=== PATIENT | female | born 1945 | race Caucasian/White ===

== ENCOUNTER → 2017-11-17 09:42 | Outpatient (CLI) | payer MEDICARE, OTHER, SELFPAY ==
--- NOTE | 2017-11-17 | DI.RAD.S_ITS ---
This blank DEXA report has been sent in error by the PACS system. The correct and complete report will be forthcoming in 1-2 days. Thank you for your patience and understanding. Dictated by: Ernestina Quispe MD, PhD on 11/17/2017 at 11:12 Approved by: Ernestina Quispe MD, PhD on 11/17/2017 at 11:12
== END ==
PROVIDERS: Family Provider Family Medicine; PCP Family Medicine; Visit Provider Family Medicine
DX: M81.0 Age-related osteoporosis without current pathological fracture (principal); Z78.0 Asymptomatic menopausal state
CPT/HCPCS: 77080

== ENCOUNTER → 2018-04-20 13:12 | Outpatient (CLI) | payer MEDICARE, OTHER, SELFPAY ==
--- NOTE | 2018-04-20 | DI.US.S_ITS ---
LIMITED ULTRASOUND OF RIGHT BREAST: 04/20/2018 CLINICAL: Targeted ultrasound ordered for evaluation of right breast pruritis. At the time of the exam, the patient reports a new focal palpable abnormality. A diagnostic mammogram order could not be obtained. Comparison is made to exams dated: 08/11/2017 mammogram, 06/24/2016 mammogram, 03/30/2015 mammogram, and 03/12/2014 mammogram - [facility]. Real-time and Doppler ultrasound of the right breast 3 o'clock and 8 o'clock regions were performed. Roa scale images of the real-time examination were reviewed. Targeted ultrasound was performed in the region of the patient's reported pruritis in the right breast at 3 o'clock position. No underlying breast mass or abnormality is identified. There is no ultrasound evidence of skin thickening or edema. Targeted ultrasound was performed in the region of the patient's reported focal palpable abnormality in the right breast at 8 o'clock position. No underlying breast mass or abnormality is identified. IMPRESSION: INCOMPLETE: NEEDS ADDITIONAL IMAGING EVALUATION 1) No ultrasound findings to explain patient's reported pruritis in the right breast at 3 o'clock position. Recommend clinical follow-up for further evaluation and management of the patient's reported symptoms. 2) No ultrasound findings to explain patient's reported focal palpable abnormality in the right breast at 8 o'clock position. Recommend clinical follow-up for further evaluation and management. A diagnostic mammogram is recommended if there is continued clinical concern. 3) There is no sonographic evidence of malignancy in the imaged portions of the right breast on today's exam. These results and recommendations were discussed with the patient at the time of the exam by the yard caller Marlen Farah after review of images and discussion with Dr. Coe. The patient is advised to monitor her breasts and to return sooner for re-evaluation should she feel anything grow or change. This exam was interpreted at Station ID: [id number]. Electronically Signed By: Scott Coe M.D. ecl/:04/20/2018 13:47:15 letter sent: Additional Imaging Needed Ultrasound BI-RADS: 0 Indeterminate
== END ==
PROVIDERS: Family Provider Family Medicine; PCP Family Medicine; Visit Provider Family Medicine
DX: L29.9 Pruritus, unspecified (principal)
CPT/HCPCS: 76642

== ENCOUNTER → 2018-05-18 09:04 | Outpatient (CLI) | payer MEDICARE, OTHER, SELFPAY ==
--- NOTE | 2018-05-18 10:28 | P.PCN_ITS ---
Cardiac Stress Test Report Referral & Results Date Patient Seen: 05/18/18 Requesting provider: Salvador Mcgowan Indication: Chest pain Rest ECG: Unremarkable Procedure Note: Today following both written and verbal informed consent the patient was exercised according to a standard Tarik protocol patient went for a total of 7 min 24 sec achieving a maximum heart rate of 133 maximum systolic blood pressure of 180. This is approximately 10.1 METS. Exercise was terminated at this point because of targets were met. Patient was also given Cardiolite through a previously started Hep-Lock IV by the fire sprinkler service technician approximately 1 minute prior to the cessation of exercise. There are no ST-T segment changes Occasional PVCs and PACs identified Normal heart rate and blood pressure response to exercise Functional aerobic impairment rated-25% on the active scale Impression: No evidence of ischemia based on ECG criteria Excellent exercise capacity Perfusion imaging report will be separate Please note: Actual ECG tracings can be found in the PACS system.
--- NOTE | 2018-05-21 18:24 | DI.NM.S_ITS ---
DATE OF SERVICE: 05/18/2018 PROCEDURE PERFORMED: Exercise treadmill stress and rest myocardial perfusion imaging study with gating to assess ejection fraction and regional wall motion. INDICATIONS: The patient is a 73-year-old female with exertional chest discomfort. REFERRING PROVIDER: Salvador Mcgowan MD EXERCISE TREADMILL TESTING: The patient was able to exercise for a total of 7 minutes 24 seconds on a standard Tarik protocol suggesting very good exercise capacity with an ANNA of -25%. She had normal hemodynamic response achieving a maximum heart rate of 133 bpm (90% of her predicted maximum). She had no chest discomfort. Her resting ECG is normal, and there are no ischemic changes with stress. There were rare isolated PVC but no complex ventricular ectopy. At 6 minutes 33 seconds of exercise, at heart rate of 133 bpm, 25.8 mCi a technetium-99 Myoview was injected, and the patient was imaged 15 minutes later using a gated SPECT acquisition protocol. The patient returned 3 days later and was reinjected with an additional 24.0 mCi of technetium-99 Myoview and was imaged 30 minutes later, again using a gated SPECT protocol. FINDINGS: 1. Raw Data: There is fairly good myocardial tracer uptake with mild breast shadows noted. The lung/heart ratio is normal at 0.29 with a normal TID ratio of 0.85. 2. Quantitative Gated SPECT: Post stress ejection fraction is estimated at 79% without any focal wall motion abnormality. Resting ejection fraction is estimated at 75% with an end-diastolic volume of 105 mL. 3. Myocardial Perfusion Imaging: Post stress supine images shows a normal myocardial perfusion pattern, supported by normal myocardial perfusion imaging in the prone position. The resting images show a similar perfusion pattern without any obvious areas of improvement. CONCLUSION: 1. Normal myocardial perfusion study. 2. No evidence for any myocardial ischemia or previous myocardial infarction. 3. Very good exercise capacity without angina or ECG evidence of ischemia. 4. Compared to the previous myocardial perfusion imaging study of 05/13/2011, there has been no significant change. The previous perfusion imaging study was also normal with a post stress ejection fraction of 74%. Robert Haas - RS/reina/ab doc#: [id number]/job#: [id number] dd: 05/21/2018 12:39:00 dt: 05/21/2018 18:11:00 DICTATING MD/COPIES TO: Kodi Fernando MD; Salvador Mcgowan MD COPIES MNE: WILVER; MELISSA
== END ==
PROVIDERS: Family Provider Family Medicine; PCP Family Medicine; Visit Provider Family Medicine
DX: R07.89 Other chest pain (principal)
CPT/HCPCS: 78452; 93016; 93017; 93018; A9502

== ENCOUNTER → 2018-08-20 09:11 | Outpatient (CLI) | payer MEDICARE, OTHER, SELFPAY ==
--- NOTE | 2018-08-20 | DI.MG.S_ITS ---
BILATERAL DIGITAL DIAGNOSTIC MAMMOGRAM 3D/2D: 08/20/2018 CLINICAL: Short term follow up of the right breast, due for bilateral imaging. Comparison is made to exams dated: 04/20/2018 ultrasound, 08/11/2017 mammogram, and 06/24/2016 mammogram - [facility]. The tissue of both breasts is heterogeneously dense. This may lower the sensitivity of mammography. No significant masses, calcifications, or other findings are seen in either breast. IMPRESSION: NEGATIVE There is no abnormality seen in the right breast to correspond with the area of pruritis at 3 o'clock, however, clinical followup is recommended. There is no mammographic evidence of malignancy. A 1 year screening mammogram is recommended. This exam was interpreted at Station ID: [id number]. NOTE: For mammograms, a report in lay terms will be sent to the patient. Approximately 15% of breast malignancies will not be visualized mammographically. In the management of a palpable breast mass, a negative mammogram must not discourage biopsy of a clinically suspicious lesion. Electronically Signed By: Joshua fuller/:08/20/2018 10:07:39 letter sent: Clinical Evaluation ACR BI-RADS Category 1: Negative 3341F
== END ==
PROVIDERS: PCP Family Medicine; Visit Provider Family Medicine
DX: R92.8 Other abnormal and inconclusive findings on diagnostic imaging of breast (principal); R92.2 Inconclusive mammogram; L29.8 Other pruritus; N63.10 Unspecified lump in the right breast, unspecified quadrant
CPT/HCPCS: 77066; G0279

== ENCOUNTER 2018-09-28 12:01 | Day surgery (SDC) | payer MEDICARE, OTHER, SELFPAY ==
[2018-09-28] VITALS (7 sets, daily range): BP systolic 129–142; BP diastolic 51–77; PULSE 61–67; RESP 11–67; TEMP 36.4–36.9; O2SAT 97–100; BMI 25.1
--- NOTE | 2018-09-28 12:56 | PM.HP.1 ---
History of Present Illness Date Patient Seen: 09/28/18 Time Patient Seen: 12:56 Chief complaint: [id number] Narrative: Patient is asymptomatic here for screening colonoscopy Patient History Social History household members: none Family & Social History Social History: household members none Meds Home Medications Medication Instructions Recorded Confirmed Type hydrochlorothiazide 25 mg PO QDAY #0 12/17/16 09/28/18 History Glucosamine Chondroitin PLUS 1 tab PO DAILY 09/28/18 09/28/18 History multivitamin 1 tab PO DAILY 09/28/18 09/28/18 History omega 5-ccx-lqv-fish oil [Fish Oil] 1,000 mg PO DAILY 09/28/18 09/28/18 History Allergies Allergy/AdvReac Type Severity Reaction Status Date / Time No Known Drug Allergies Allergy Verified 09/28/18 12:36 Review of Systems Review of Systems All systems reviewed & are unremarkable except as noted in HPI and below Exam Vital Signs (past 8 hours): - 09/28/18 12:22 Temperature 97.9 F Pulse Rate 61 Respiratory Rate 16 Blood Pressure 142/77 H Pulse Oximetry 97 Oxygen Delivery Method Room Air Narrative Exam Narrative: Patient is alert and oriented vital signs are stable she is asymptomatic Lungs are clear Heart regular rhythm no murmur Abdomen soft nontender Rectal be done at time of colonoscopy Assessment & Plan Assessment & Plan narrative: Patient has had 1 prior colonoscopy with no polyps 10 years ago. She is asymptomatic here for repeat screening she understands the procedure and agrees without further questions
[2018-09-28] MEDS: MIDAZOLAM 5 MG/5 ML VIAL IV (13:20)
[2018-09-28] MEDS: fentaNYL 250 MCG/5 ML INJ IV (13:20)
--- NOTE | 2018-09-28 13:26 | PM.OP.ENDO ---
Operative Date/Time/Diagnoses Date of procedure: 09/28/18 Time of procedure: 13:26 Pre-op diagnosis: Screening colonoscopy Post-op diagnosis: same Procedure & Clinicians Study performed: Total colonoscopy to the cecum Same procedure as scheduled: Yes Indications: Screening Surgeon: Jey Stoll Procedure Notes SCOAP/Timeout: Was done Procedure in detail: Patient is properly identified during surgical pause. She was given a total of 150 micro g of a fentanyl and 4 mg of Versed throughout the procedure and remained comfortable the flexible fiberoptic colonoscope inserted transanally to the cecum patient has a normal colon with no diverticuli no tumors no polyps no ulcerations Scope withdrawal time: 7 Sedation minutes: 22 Specimen(s): none sent Complications: none Recommendations: Colonscopy in 10 years Follow up: as needed Disposition: PACU
[2018-09-28] MEDS: SODIUM CHLORIDE 0.9% 1,000 ML 200 ML IV (13:34)
== END 2018-09-28 14:05 | disposition home or self-care (01) ==
PROVIDERS: PCP Family Medicine; Visit Provider Surgery
PROC: 0DJD8ZZ Inspection of Lower Intestinal Tract, Via Natural or Artificial Opening Endoscopic (ICD-10-PCS; CPT 45378; principal; 2018-09-28 13:00)
DX: Z12.11 Encounter for screening for malignant neoplasm of colon (principal)
CPT/HCPCS: G0121; 99152; J2250; J3010

== ENCOUNTER → 2019-09-03 14:33 | Outpatient (CLI) | payer MEDICARE, OTHER, SELFPAY ==
[2019-09-03 15:01] LABS: Add Manual Diff / Slide Review NO; Basophils Absolute Auto 0 /uL (0-100); Basophils Percent Auto 0.5 % (0-2); Eosinophils Absolute Auto 300 /uL (0-450); Eosinophils Percent Auto 3.8 % (2-4); Hematocrit 35.1 % (36-46); Hemoglobin 12.1 g/dL (12.0-16.0); Lymphocytes Absolute Auto 2300 /uL (1100-4500); Lymphocytes Percent Auto 34.3 % (25-40); Mean Corpuscular HGB Conc 34.4 % (30-36); Mean Corpuscular Volume 90.1 fL (80-100); Monocytes Absolute Auto 700 /uL (0-900); Monocytes Percent Auto 10.6 % (3-14); Neutrophils Absolute Auto 3300 /uL (1500-7000); Neutrophils Percent Auto 50.8 % (50-75); Platelet Count 238 X10^3/uL (150-400); Red Cell Distribution Width 12.9 % (11.6-14.8); White Blood Cell Count 6.6 X10^3/uL (4.5-11.0)
[2019-09-03 15:17] LABS: Alanine Aminotransferase 18 IU/L (<35); Albumin 4.4 g/dL (3.5-5.0); Albumin Globulin Ratio 1.4 (1.0-2.8); Alkaline Phosphatase 54 U/L (38-126); Aspartate Aminotransferase 29 IU/L (14-36); BUN Creatinine Ratio 26.8 (6-22); Bilirubin Total 0.3 mg/dL (0.2-1.3); Blood Urea Nitrogen 15 mg/dL (7-17); Calcium 9.4 mg/dL (8.4-10.2); Carbon Dioxide 27 mmol/L (22-32); Chloride 96 mmol/L (98-107); Estimated Glomerular Filt Rate > 60.0 mL/min (>60); Globulin 3.2 g/dL (1.7-4.1); Glucose 106 mg/dL (80-110); HEMOLYSIS < 15 (0-50); Lactate Dehydrogenase 479 U/L (313-618); Potassium 3.5 mmol/L (3.4-5.1); Sodium 133 mmol/L (137-145); Total Protein 7.6 g/dL (6.3-8.2)
[2019-09-05 03:36] LABS: Beta-2-Microglobulin 1.6 mg/L (0.6-2.4)
[2019-11-03 13:58] LABS: Free Kappa Lt Chains, Serum 15.6; Free Lambda Lt Chains,Serum 6.8
== END ==
PROVIDERS: PCP Student in an Organized Health Care Education/Training Program; Referring Provider Internal Medicine Hematology & Oncology; Visit Provider Internal Medicine Hematology & Oncology
DX: C88.0 Waldenstrom macroglobulinemia (principal)
CPT/HCPCS: 36415; 80053; 82232; 83615; 83883; 85025

== ENCOUNTER → 2019-12-24 15:43 | Outpatient (CLI) | payer MEDICARE, OTHER, SELFPAY ==
--- NOTE | 2019-12-24 16:01 | DI.MG.S_ITS ---
Patient Name: STEFANIE ROSENBERG date: 1945 Sex: F Attending Physician: Fernando Indications: Date: 12/24/2019 15:52 At the request of: TODD ORTIZ Procedure: MM screening mammo BI BILATERAL DIGITAL SCREENING MAMMOGRAM 3D/2D WITH CAD: 12/24/2019 CLINICAL: Routine screening. Comparison is made to exams dated: 08/20/2018 mammogram, 08/11/2017 mammogram, and 06/24/2016 mammogram - [facility]. The tissue of both breasts is heterogeneously dense. This may lower the sensitivity of mammography. Current study was also evaluated with a Computer Aided Detection (CAD) system. There are benign calcifications in both breasts. No significant masses, calcifications, or other findings are seen in either breast. There has been no significant interval change. IMPRESSION: BENIGN There is no mammographic evidence of malignancy. A 1 year screening mammogram is recommended. This exam was interpreted at Station ID: [id number]. NOTE: For mammograms, a report in lay terms will be sent to the patient. Approximately 15% of breast malignancies will not be visualized mammographically. In the management of a palpable breast mass, a negative mammogram must not discourage biopsy of a clinically suspicious lesion. Electronically Signed By: Catherine he/j luis:12/24/2019 16:10:26 letter sent: Normal Exam ACR BI-RADS Category 2: Benign Finding(s) 3342F
== END ==
PROVIDERS: PCP Student in an Organized Health Care Education/Training Program; Referring Provider Student in an Organized Health Care Education/Training Program; Visit Provider Student in an Organized Health Care Education/Training Program
DX: Z12.31 Encounter for screening mammogram for malignant neoplasm of breast (principal)
CPT/HCPCS: 77063; 77067

== ENCOUNTER → 2020-05-13 16:38 | Outpatient (CLI) | payer MEDICARE, OTHER, SELFPAY ==
[2020-05-13 17:09] LABS: Add Manual Diff / Slide Review NO; Basophils Absolute Auto 0 /uL (0-100); Basophils Percent Auto 0.5 % (0-2); Eosinophils Absolute Auto 200 /uL (0-450); Eosinophils Percent Auto 2.1 % (2-4); Hemoglobin 12.3 g/dL (12.0-16.0); Lymphocytes Absolute Auto 2700 /uL (1100-4500); Lymphocytes Percent Auto 36.4 % (25-40); Mean Corpuscular HGB Conc 34.2 % (30-36); Mean Corpuscular Hemoglobin 30.7 PG (26-34); Mean Corpuscular Volume 89.8 fL (80-100); Monocytes Absolute Auto 900 /uL (0-900); Monocytes Percent Auto 11.6 % (3-14); Neutrophils Absolute Auto 3700 /uL (1500-7000); Neutrophils Percent Auto 49.4 % (50-75); Platelet Count 272 X10^3/uL (150-400); Red Blood Cell Count 4.01 X10^6/uL (4.0-5.2); Red Cell Distribution Width 12.8 % (11.6-14.8); White Blood Cell Count 7.4 X10^3/uL (4.5-11.0)
[2020-05-13 17:15] LABS: INR 1.1 (0.9-1.3); Prothrombin Time 12.6 SECONDS (10.1-12.7)
[2020-05-13 17:18] LABS: PTT Partial Thromboplastin Tim 30 SECONDS (26.4-36.2)
[2020-05-13 17:33] LABS: BUN Creatinine Ratio 35.4 (6-22); Blood Urea Nitrogen 17 mg/dL (7-17); Calcium 9.4 mg/dL (8.4-10.2); Carbon Dioxide 30 mmol/L (22-32); Chloride 96 mmol/L (98-107); Estimated Glomerular Filt Rate > 60.0 mL/min (>60); Glucose 83 mg/dL (80-110); HEMOLYSIS < 15 (0-50); Potassium 3.5 mmol/L (3.4-5.1); Sodium 131 mmol/L (137-145)
== END ==
PROVIDERS: PCP Student in an Organized Health Care Education/Training Program; Referring Provider Orthopaedic Surgery; Visit Provider Orthopaedic Surgery
DX: Z01.818 Encounter for other preprocedural examination (principal); Z51.81 Encounter for therapeutic drug level monitoring; Z01.812 Encounter for preprocedural laboratory examination
CPT/HCPCS: 36415; 80048; 85025; 85610; 85730; 93005; 93010

== ENCOUNTER → 2020-05-19 13:26 | Outpatient (CLI) | payer MEDICARE, OTHER, SELFPAY ==
[2020-05-19 13:42] LABS: Bacteria Urine None Seen; RBC Urine None Seen (0-5/HPF)
[2020-05-19 14:14] LABS: Appearance Urine UA CLEAR; Bilirubin Urine UA NEGATIVE (NEGATIVE); Color Urine UA YELLOW; Glucose Urine UA NEGATIVE (Negative); Ketones Urine UA NEGATIVE (NEGATIVE); Leukocyte Esterase Urine UA NEGATIVE (NEGATIVE); Nitrite Urine UA NEGATIVE (Negative); Occult Blood Urine UA NEGATIVE (Negative); Protein Urine UA NEGATIVE (Negative); Urobilinogen Urine UA 0.2 E.U./dL (0.2)
[2020-05-19 14:36] LABS: pH Urine UA 6.5 (4.5-8.0)
[2020-05-19 14:42] LABS: Amorphous Sediment Urine 1+; Culture Indicated Urine Cult Not Indicated; Squamous Epithelial Cell Urine 0-1 /HPF (0-5/HPF); WBC Urine 0-1/HPF (0-5/HPF)
[2020-05-19 15:07] LABS: Hemoglobin A1C% w Est Avg Glu 6.1 % (4.0-6.0)
== END ==
PROVIDERS: PCP Student in an Organized Health Care Education/Training Program; Referring Provider Orthopaedic Surgery; Visit Provider Orthopaedic Surgery
DX: R73.9 Hyperglycemia, unspecified (principal); N39.0 Urinary tract infection, site not specified
CPT/HCPCS: 81001; 83036

== ENCOUNTER → 2020-05-26 14:54 | Outpatient (CLI) | payer MEDICARE, OTHER, SELFPAY ==
--- NOTE | 2020-05-26 | DI.RAD.S_ITS ---
PROCEDURE: XR CHEST 2V INDICATIONS: ANGINA TECHNIQUE: 2 views of the chest were acquired. COMPARISON: None. FINDINGS: Surgical changes and devices: None. Lungs and pleura: Lungs are clear. No pleural effusions or pneumothorax. Mediastinum: Mediastinal contours are normal. Heart size is normal. Bones and chest wall: No suspicious bony abnormalities. Soft tissues appear unremarkable. IMPRESSION: Normal for age, source of current chest pain symptoms is not seen. Dictated by: Ever Schuler M.D. on 05/26/2020 at 15:49 Approved by: Ever Schuler M.D. on 05/26/2020 at 15:49
== END ==
PROVIDERS: PCP Student in an Organized Health Care Education/Training Program; Referring Provider Student in an Organized Health Care Education/Training Program; Visit Provider Student in an Organized Health Care Education/Training Program
DX: I20.9 Angina pectoris, unspecified (principal)
CPT/HCPCS: 71046

== ENCOUNTER → 2020-06-01 09:36 | Outpatient (CLI) | payer MEDICARE, OTHER, SELFPAY ==
[2020-06-01 10:59] LABS: COVID19 -Nasal RAPID Negative (Negative)
== END ==
PROVIDERS: PCP Student in an Organized Health Care Education/Training Program; Visit Provider Nurse Practitioner
DX: Z01.812 Encounter for preprocedural laboratory examination (principal); Z20.822 Contact with and (suspected) exposure to COVID-19
CPT/HCPCS: 87635; C9803

== ENCOUNTER 2020-06-02 11:44 | Day surgery (SDC) | payer MEDICARE, OTHER, SELFPAY ==
[2020-06-02] MEDS: LACTATED RINGERS 1,000 ML 42 ML IV (14:45)
[2020-06-02 14:46] VITALS: BP 158/80; PULSE 59; RESP 16; TEMP 36.8; O2SAT 99; BMI 26.2
--- NOTE | 2020-06-02 15:13 | CM.DPNOTE ---
Lizz from [facility] called on 06/02/20 at 1510 giving us information that patient's ortho physician has already requested home health once patient is discharged. She said she has the clinicals from the ortho group and asked once the discharge order for Home Health is available, to fax to [facility] [place]. I told her I will let the [employer]DC Mandrel Maker know tomorrow since patient was new and not on our list for today. Carlota Birmingham CM Asst.
== END 2020-06-02 15:00 | disposition home or self-care (01) ==
LOC: OR 11:47 → AC 11:47
PROVIDERS: PCP Student in an Organized Health Care Education/Training Program; Referring Provider Orthopaedic Surgery; Visit Provider Orthopaedic Surgery
DX: M25.551 Pain in right hip (principal); Z53.09 Procedure and treatment not carried out because of other contraindication
CPT/HCPCS: 27130

== ENCOUNTER → 2020-06-06 11:58 | Outpatient (CLI) | payer MEDICARE, OTHER, SELFPAY ==
[2020-06-06 12:36] LABS: COVID19 -Nasal RAPID Negative (Negative)
== END ==
PROVIDERS: PCP Student in an Organized Health Care Education/Training Program; Visit Provider Nurse Practitioner Family
DX: Z20.822 Contact with and (suspected) exposure to COVID-19 (principal)
CPT/HCPCS: 87635; C9803

== ENCOUNTER → 2020-06-08 10:14 | Outpatient (CLI) | payer MEDICARE, OTHER, SELFPAY ==
--- NOTE | 2020-06-08 10:16 | DI.NM.S_ITS ---
PROCEDURE: NM DOROTHY PERF SPECT R&S PHARM Rest and pharmacological stress myocardial perfusion SPECT with gated imaging and ejection fraction RADIOPHARMACEUTICAL: 25.9 mCi Tc-99m tetrafosmin IV at rest and 27.0 mCi Tc-99m tetrafosmin IV at peak effect of pharmacological stress. Omy-ohx-rpxebphe was performed. INDICATIONS: Angina pectoris, unspecified TECHNIQUE: Radiopharmaceutical was injected at peak stress test, and also at rest. SPECT images were obtained. SPECT myocardial perfusion images were displayed in short axis, horizontal long axis, and vertical long axis views. Gated images were reviewed using [email or web address] software. COMPARISON: None. CARDIAC STRESS: A pharmacologic stress test was performed under the supervision of an attending staff, using an infusion of lexiscan 0.4mg IV X1. Hemodynamic data: There is normal blood pressure and heart rate response to pharmacologic stress. Symptoms: The patient denied anginal chest pain. Aminophylline: none EKG: No diagnostic changes of ischemia; frequent PVCs during the study. FINDINGS: Raw data: There is good myocardial uptake of radiotracer. No significant motion artifacts. Zvnv-sz-ltahe ratio is 0.28 (normal is less than 0.38 for tetrafosmin tracer). Left ventricle function: Gated images demonstrate normal left ventricular wall thickening. No segmental wall motion abnormalities. No transient ischemic dilation; TID is 1.05 (normal less than 1.3). Left ventricle resting end diastolic volume is 124 mL. Left ventricle stress ejection fraction is 75%; normal range is above 45%. Myocardial perfusion: There is normal distribution of activity in the right and left ventricular myocardium. No fixed or reversible perfusion defects. IMPRESSION: Low risk, normal pharmaceutical nuclear stress test. 1) No perfusion evidence of ischemia or infarction.l 2) Normal left ventricular size, wall motion, and systolic function (EF post stress 75%). 3) No ECG evidence of ischemia. Frequent PVCs during the study. 4) No angina during the study. 5) Compared to the nuclear stress test done 05/18/2018, no change in perfusion images. Dictated by: Chucho Stone MD on 06/09/2020 at 16:36 Approved by: Chucho Stone MD on 06/09/2020 at 16:39
--- NOTE | 2020-06-08 11:38 | PM.TREADMILL ---
Cardiac Stress Test Report Referral & Results Date Patient Seen: 06/08/20 Time Patient Seen: 11:38 Requesting provider: Dinora King Indication: Angina pectoris Rest ECG: Sinus rhythm with PACs Procedure Note: After Lexiscan injection, had minimal dyspnea, no chest pain No significant ST changes after Lexiscan injection Keatonimeny noted , asymptomatic Impression: Normal Lexiscan stress test Nuclear images pending Please note: Actual ECG tracings can be found in the PACS system.
== END ==
PROVIDERS: PCP Student in an Organized Health Care Education/Training Program; Referring Provider Student in an Organized Health Care Education/Training Program; Visit Provider Student in an Organized Health Care Education/Training Program
DX: I20.9 Angina pectoris, unspecified (principal); R07.89 Other chest pain
CPT/HCPCS: 78452; 93017; A9502; J2785

== ENCOUNTER → 2020-06-29 16:33 | Outpatient (CLI) | payer MEDICARE, OTHER, SELFPAY ==
[2020-06-29 17:52] LABS: Add Manual Diff / Slide Review NO; Basophils Absolute Auto 0 /uL (0-100); Basophils Percent Auto 0.4 % (0-2); Eosinophils Absolute Auto 200 /uL (0-450); Hematocrit 34.4 % (36-46); Hemoglobin 12.1 g/dL (12.0-16.0); Lymphocytes Absolute Auto 2800 /uL (1100-4500); Lymphocytes Percent Auto 33.4 % (25-40); Mean Corpuscular HGB Conc 35.1 % (30-36); Mean Corpuscular Hemoglobin 31.7 PG (26-34); Mean Corpuscular Volume 90.1 fL (80-100); Monocytes Absolute Auto 700 /uL (0-900); Monocytes Percent Auto 8.9 % (3-14); Neutrophils Absolute Auto 4600 /uL (1500-7000); Neutrophils Percent Auto 55.3 % (50-75); Platelet Count 244 X10^3/uL (150-400); Red Blood Cell Count 3.82 X10^6/uL (4.0-5.2); Red Cell Distribution Width 13.4 % (11.6-14.8); White Blood Cell Count 8.3 X10^3/uL (4.5-11.0)
[2020-06-29 18:03] LABS: BUN Creatinine Ratio 32.7 (6-22); Blood Urea Nitrogen 17 mg/dL (7-17); Calcium 9.5 mg/dL (8.4-10.2); Carbon Dioxide 28 mmol/L (22-32); Chloride 96 mmol/L (98-107); Estimated Glomerular Filt Rate > 60.0 mL/min (>60); Glucose 83 mg/dL (80-110); HEMOLYSIS 15 (0-50); Magnesium 1.8 mg/dL (1.6-2.3); Potassium 3.4 mmol/L (3.4-5.1); Sodium 130 mmol/L (137-145)
== END ==
PROVIDERS: PCP Student in an Organized Health Care Education/Training Program; Referring Provider Internal Medicine Cardiovascular Disease; Visit Provider Internal Medicine Cardiovascular Disease
DX: I49.3 Ventricular premature depolarization (principal)
CPT/HCPCS: 36415; 80048; 83735; 85025

== ENCOUNTER → 2020-11-24 07:14 | Outpatient (CLI) | payer MEDICARE, OTHER, SELFPAY ==
[2020-11-24 08:45] LABS: BUN Creatinine Ratio 22.6 (6-22); Blood Urea Nitrogen 12 mg/dL (7-17); Calcium 9.5 mg/dL (8.4-10.2); Carbon Dioxide 28 mmol/L (22-32); Chloride 99 mmol/L (98-107); Cholesterol 131 mg/dL (140-199); Estimated Glomerular Filt Rate > 60.0 mL/min (>60); Glucose 95 mg/dL (80-110); HDL Cholesterol 61 mg/dL (40-60); HEMOLYSIS < 15 (0-50); LDL Cholesterol Calculated 60 mg/dL (<100); Magnesium 1.9 mg/dL (1.6-2.3); Potassium 4.2 mmol/L (3.4-5.1); Sodium 134 mmol/L (137-145); Triglycerides 50 mg/dL (35-150)
[2020-11-24 09:12] LABS: Add Manual Diff / Slide Review NO; Basophils Absolute Auto 0 /uL (0-100); Basophils Percent Auto 0.1 % (0-2); Eosinophils Absolute Auto 200 /uL (0-450); Eosinophils Percent Auto 4.3 % (2-4); Hematocrit 35.6 % (36-46); Hemoglobin 12.2 g/dL (12.0-16.0); Lymphocytes Absolute Auto 1200 /uL (1100-4500); Lymphocytes Percent Auto 22.1 % (25-40); Mean Corpuscular HGB Conc 34.2 % (30-36); Mean Corpuscular Volume 90.5 fL (80-100); Monocytes Absolute Auto 500 /uL (0-900); Monocytes Percent Auto 9.3 % (3-14); Neutrophils Absolute Auto 3500 /uL (1500-7000); Neutrophils Percent Auto 64.2 % (50-75); Platelet Count 253 X10^3/uL (150-400); Red Blood Cell Count 3.93 X10^6/uL (4.0-5.2); Red Cell Distribution Width 12.4 % (11.6-14.8); White Blood Cell Count 5.4 X10^3/uL (4.5-11.0)
== END ==
PROVIDERS: PCP Student in an Organized Health Care Education/Training Program; Referring Provider Internal Medicine Cardiovascular Disease; Visit Provider Internal Medicine Cardiovascular Disease
DX: I10 Essential (primary) hypertension (principal); E78.5 Hyperlipidemia, unspecified
CPT/HCPCS: 36415; 80048; 80061; 83735; 85025

== ENCOUNTER → 2020-12-24 14:09 | Outpatient (CLI) | payer MEDICARE, OTHER, SELFPAY ==
--- NOTE | 2020-12-24 | DI.MG.S_ITS ---
BILATERAL DIGITAL SCREENING MAMMOGRAM 3D/2D WITH CAD: 12/24/2020 CLINICAL: Routine screening. Comparison is made to exams dated: 12/24/2019 mammogram, 08/11/2017 mammogram, and 06/24/2016 mammogram - [facility]. The tissue of both breasts is heterogeneously dense. This may lower the sensitivity of mammography. Current study was also evaluated with a Computer Aided Detection (CAD) system. There are benign calcifications in both breasts. No significant masses, calcifications, or other findings are seen in either breast. There has been no significant interval change. IMPRESSION: BENIGN There is no mammographic evidence of malignancy. A 1 year screening mammogram is recommended. This exam was interpreted at Station ID: [id number]. NOTE: For mammograms, a report in lay terms will be sent to the patient. Approximately 15% of breast malignancies will not be visualized mammographically. In the management of a palpable breast mass, a negative mammogram must not discourage biopsy of a clinically suspicious lesion. Electronically Signed By: Tj patel/j luis:12/24/2020 15:09:15 letter sent: Normal Exam ACR BI-RADS Category 2: Benign Finding(s) 3342F
== END ==
PROVIDERS: PCP Student in an Organized Health Care Education/Training Program; Referring Provider Student in an Organized Health Care Education/Training Program; Visit Provider Student in an Organized Health Care Education/Training Program
DX: Z12.31 Encounter for screening mammogram for malignant neoplasm of breast (principal)
CPT/HCPCS: 77063; 77067

== ENCOUNTER → 2020-12-28 10:02 | Outpatient (CLI) | payer MEDICARE, OTHER, SELFPAY ==
[2020-12-28 11:31] LABS: COVID19 -Nasal RAPID Negative (Negative)
== END ==
PROVIDERS: PCP Student in an Organized Health Care Education/Training Program; Visit Provider Nurse Practitioner Family
DX: Z01.812 Encounter for preprocedural laboratory examination (principal); Z20.822 Contact with and (suspected) exposure to COVID-19
CPT/HCPCS: 87635; C9803

== ENCOUNTER 2020-12-29 05:53 | Day surgery (SDC) | payer MEDICARE, OTHER, SELFPAY ==
[2020-12-25 08:08] VITALS: BMI 26.3
[2020-12-29] VITALS (18 sets, daily range): BP systolic 113–150; BP diastolic 53–90; PULSE 38–71; RESP 10–17; TEMP 35.9–37.1; O2SAT 93–99; BMI 26.3
--- NOTE | 2020-12-29 | PATH_ITS ---
[facility] Accession Number: [id number] . 01 Material submitted: . hip - RIGHT HIP MASS . 01 Clinical history: . OPB . 01 Diagnosis: Right Hip, Excision: Mature adipose tissue, consistent with lipoma. MRV 12/31/2020 1008 Local . 01 Electronically signed: . Raul Dawson MD, Dermatopathologist NPI- [id number] . 01 Gross description: . The specimen is received in formalin, labeled right hip mass and consists of a 3.6 x 2.8 x 1.6 cm valdez-yellow fragment of adipose tissue, which is inked blue and sectioned to reveal valdez-yellow, lobulated cut surfaces. The specimen is entirely submitted in cassettes A1-A4. ([id number]) /V 12/30/2020 1020 Local . 01 Pathologist provided ICD-10: D17.9 . 01 CPT . 686694 Performed at: 01 [facility] [address] [place] [address] [address], [place], [place] [id number] MD Joshua Garcia MD Phone: [phone]
[2020-12-29] MEDS: LACTATED RINGERS 1,000 ML 100 ML IV (07:03)
--- NOTE | 2020-12-29 07:35 | P.OP_ITS ---
Operative Date/Time/Diagnoses Date of procedure: 12/29/20 Time of procedure: 08:00 Pre-op diagnosis: Right hip osteoarthritis, right hip soft tissue mass Post-op diagnosis: same Procedure & Clinicians Procedure: Right total hip arthroplasty anterior approach, excision right hip soft tissue mass Same procedure as scheduled: Yes Indications: The patient has had progressively worsening right hip pain with radiographic changes consistent with arthritis. Non-operative management has failed and the patient has requested total hip replacement. The risks, benefits and alternatives to surgery were discussed with the patient prior to proceeding. Risks discussed included, but were not limited to, failure to relieve pain, leg length discrepancy, dislocation, stiffness, infection, nerve damage, deep venous thrombosis, pulmonary embolism, stroke, coma, heart attack, permanent paralysis and , as well as the potential need for eventual revision of the prosthetic. She also has a small subcutaneous mass about 3 cm on the anterior aspect of her hip. I have recommended excision of this. Surgeon: Koki German Principal Technical Specialist: Tami Fraga Anesthesia Type: General and Spinal Operative Notes Findings: Severe arthritis, adequate bone, adequate stability, small subcutaneous mass 3.5 by 2 cm fatty appearance Closure Type: primary Specimen(s): other (Soft tissue mass sent for pathology) Prosthetic devices, grafts, tissues, transplants, or devices: [employer] anthology standard offset 12, 56 R3 cup, +0 oxininium head, neutral liner 36, two 6.5 mm screws Estimated Blood Loss (mL): 250 Blood products transfused: none Procedure in detail: The patient was brought to the operating room. Patient was carefully positioned in the supine position. Time-out was performed and antibiotics were given. Anesthesia was induced. She was positioned in the on the table in order to allow hyperextension of the hip. The right lower extremity was prepped and draped in a standard sterile fashion. An anterior right hip incision was made 1 fingerbreadth lateral to the anterior superior iliac spine and extended distally towards the greater trochanter. Dissection was carried out through skin and subcutaneous tissues. Dissection was carried out carefully down around a subcutaneous mass. It was meticulously mobilized. It was carefully resected and sent for pathology. hemostasis was achieved. The fascia over the tensor fascia bucky was defined and incised with a knife. Two Allis clamps were used to grasp the fascia. Tensor fascia bucky was retracted laterally. A gelpi retractor was placed. There was moderate scarring between the tensor and the rectus. The fascia was carefully released and the tensor was meticulously mobilized. Dissection was carried out down along the neck. The circumflex vessels were carefully identified and cauterized with the Aqua Mantis. There was good visualization of the femoral neck. A Cobra was placed superior to the neck and the gluteus fibers were carefully stripped from that superior aspect of the capsule. A 2nd retractor was placed along the inferior aspect of the neck. The rectus insertion along the capsule was partially released. A 3rd retractor that was then gently placed over the rim of the acetabulum under the rectus. Capsule was carefully incised and released from the intertrochanteric line circumferentially superior to the mid sagittal line and inferiorly to the mid sagittal line until the lesser trochanter was palpable. A tag stitch was placed both in the superior and inferior limb of the capsular insertion. An Maryann soft tissue retractor was placed. Along the acetabulum capsule was also released up to the mid sagittal 12:00 position. A portion of the labrum was resected. A saw was used to perform an osteotomy at the level of the in tertrochanteric line and the junction of the superior femoral neck leaving approximately 1 finger breath of residual inferior neck above the lesser trochanter. A 2nd cut was made along the femoral neck at the base of the head and a napkin ring of neck was removed. Corkscrew was placed in the femoral head and the head was removed without difficulty. Retractors were then repositioned around the ac etabulum. Residual labrum was resected and additional osteophytes were removed. A reamer that was 4 mm below the templated size was placed by hand in the acetabulum and it was reamed to centralize the acetabulum. It was then reamed up to 2 under the templated size and fluoroscopy was brought in to confirm the position of the reaming and depth of reaming. I reamed 1 under the anticipated size and touched the rim with line to line reaming. A trial cup was placed and noted that it was appropriately sized and fluoroscopy confirmed position and depth. The component was open and inserted without d ifficulty fluoroscopic imaging was used to confirm that the cup had been adequately seated and was well positioned. She had a very soft acetabulum and cup. It was slightly washed out superiorly. The cup was further stabilized with two screws. Neutral poly liner was placed. The cup was tested and noted to be stable. Attention was then directed to the femur. The femur was gently hyperextended a dditional capsular release was performed as needed in order to allow adequate visualization of the proximal femur with elevation of the femur. Patient was placed in a hyperextended slightly adducted position with maximum external rotation. Box osteotome was used to check for any residual neck as well as sclerotic bone along the trochanter. [place] pepper was placed in the femur. Additional broaching was performed. Canal finder was used to determine the alignment of the canal and position. Size 1 broach was placed. The canal was then appropriately broached up to the templated size as long as there was adequate stability of the broach and serial advancement of the broach without excessive impingement. Specific attention was directed at avoiding varus attempting to direct the distal aspect of the broach more anteriorly and avoiding excessive anteversion. Trial reduction showed acceptable range of motion, good stability, no posterior impingement, baptist of leg length and appropriate lateral shuck. I also hyperflexed the hip and checked that there was no impingement anteriorly and there was good stability with flexion, adduction and internal rotation. Marcaine and Exparel were injected. The stem was placed without difficulty. Repeat trial reduction and x-ray showed acceptable overall position, length, and no evidence of the femoral fracture. Final head was placed. Wound was meticulously irrigated with normal saline. The hip was reduced and additional Exparel and Marcaine were injected. The capsule was closed with interrupted nonabsorbable sutures. The fascia of the tensor was closed with interrupted and running Vicryl. No drain was placed. Any tensor fascia bucky muscle that appeared to be contused or injured which was a minimal amount was carefully resected. Capsule around the tensor was injected with Exparel and Marcaine. The skin was closed with barbed stitches for the subcutaneous tissue and skin. We also used surgical glue. The wound was dressed sterilely. Brief Betadine soak was also used and was meticulously irrigated with normal saline. Patient was transferred to recovery room in satisfactory condition. Complications: none Post-operative Condition: stable Disposition: Acute Care Plan for aftercare: The patient will be maintained on a standard total hip replacement protocol with weight bearing as tolerated and anterior hip precautions. The patient will receive Aspirin and sequential compression devices for DVT prophylaxis. The patient will be discharged home when safe for the home environment.
--- NOTE | 2020-12-29 07:35 | PM.PREOP ---
Pre-operative Note COVID-19 COVID-19 status: Negative Interval Note History & Physical reviewed/Exam performed by Physician: Yes Changes to H&P: No
[2020-12-29] MEDS: VANCOMYCIN 1,000 MG/200 ML PIGGYBACK 200 MG IV (07:44)
[2020-12-29] MEDS: CELECOXIB 200 MG CAPSULE PO (07:46)
[2020-12-29] MEDS: PREGABALIN 75 MG CAPSULE PO (07:46)
[2020-12-29] MEDS: ACETAMINOPHEN 325 MG TABLET 975 MG PO (07:47)
--- NOTE | 2020-12-29 08:00 | DI.RAD.S_ITS ---
PROCEDURE: XR HIP W PEL IF DONE RT 2V INDICATIONS: Postop films TECHNIQUE: 2 view(s) of the hip acquired. COMPARISON: [facility], CR, [id number] W PEL IF PERFORMED, 12/17/2016, 14:28. FINDINGS: Bones: Patient is status post total right hip arthroplasty, with hardware components in expected positions. The hip joint appears congruent. The visualized bony structures appear intact. Soft tissues: Overlying postoperative changes are noted. No suspicious soft tissue densities. IMPRESSION: Intraoperative fluoroscopic postoperative images of total right hip replacement are seen. Dictated by: Alfredo Coe M.D. on 12/29/2020 at 18:36 Approved by: Alfredo Coe M.D. on 12/29/2020 at 18:36
[2020-12-29] MEDS: TRANEXAMIC ACID 1,000 MG in SODIUM CHLORIDE 0.9% 100 ML 200 ML IV ×2 (08:20→10:55)
[2020-12-29] MEDS: CEFAZOLIN 1 GM VIAL 2 GM IV ×2 (08:22→16:25)
--- NOTE | 2020-12-29 08:33 | SUR.OPER ---
Supine on padded [place] table with bilateral legs secured in padded positioning boots and suspended in positioning spars, operative leg in traction per surgeon. Head on one pillow. Arm on non-operative side secured on padded armboard <90 degrees abduction. Arm on operative side padded and resting across chest then secured with tape over sheet. Padded perineal post in place per surgeon.
[2020-12-29] MEDS: BUPIVACAINE 0.25% (PF) VIAL 30 ML INJ (08:40)
[2020-12-29] MEDS: EPINEPHrine 1 MG/ML SUBCUT (08:41)
--- NOTE | 2020-12-29 10:00 | DI.RAD.S_ITS ---
PROCEDURE: XR HIP W PEL IF DONE RT 2V INDICATIONS: RT ANT HIP TECHNIQUE: AP pelvis with lateral view(s) of the right hip(s). COMPARISON: [facility], , XR HIP W PEL IF DONE RT 2V, 12/29/2020, 9:42. FINDINGS: Bones: No fractures or dislocations. Pelvic ring appears intact. No suspicious bony lesions. Expected alignment of right hip arthroplasty. Hardware appears intact. Soft tissues: Overlying postsurgical sequela. IMPRESSION: Expected postoperative appearance Dictated by: Sky Ivy M.D. on 12/29/2020 at 14:17 Approved by: Sky Ivy M.D. on 12/29/2020 at 14:20
[2020-12-29 10:46] LABS: Appearance Urine UA CLEAR; Bilirubin Urine UA NEGATIVE (NEGATIVE); Color Urine UA YELLOW; Glucose Urine UA TRACE g/dL (Negative); Ketones Urine UA NEGATIVE (NEGATIVE); Leukocyte Esterase Urine UA NEGATIVE (NEGATIVE); Nitrite Urine UA NEGATIVE (Negative); Occult Blood Urine UA TRACE-LYSED (Negative); Protein Urine UA NEGATIVE (Negative); Urobilinogen Urine UA 0.2 E.U./dL (0.2)
[2020-12-29 10:56] LABS: Amorphous Sediment Urine 1+; Bacteria Urine Occasional (0-1); Culture Indicated Urine Specimen Cultured; Mucus Urine 1+ (Negative); RBC Urine 0-1/HPF (0-5/HPF); Squamous Epithelial Cell Urine 0-1 /HPF (0-5/HPF); WBC Urine 0-1/HPF (0-5/HPF)
--- NOTE | 2020-12-29 11:02 | PC.NURSE ---
Day shift: Pt not on AC unit at this time (1102).
--- NOTE | 2020-12-29 12:11 | PC.NURSE ---
Addendum entered by Meri Cheung R.N. 12/29/20 12:17: She is A&Ox4. Denies any pain or nausea. Aquacel rt anterior hip is CDI. CMS intact. RA 97%. Tolerating SCD's. Instructed on I.S. use. VS WNL. Agrees to not get OOB w/o help from staff. Oriented to room and call light. Bed alarm is on. Original Note: Day shift: Pt on AC unit from PACu at approx 1210.
[2020-12-29] MEDS: LACTATED RINGERS 1,000 ML 125 ML IV (12:26)
[2020-12-29] MEDS: ACETAMINOPHEN 325 MG TABLET 650 MG PO ×2 (14:11→20:24)
[2020-12-29] MEDS: IBUPROFEN 400 MG TABLET PO ×3 (14:11→20:26)
--- NOTE | 2020-12-29 17:30 | PT.IIE ---
Current Diagnoses Unilateral primary osteoarthritis, right hip (12/29/20) Pain in right hip (12/29/20) Surgery Performed Operation Date: 12/29/20 07:45 Actual Procedures p Total Hip Arthroplasty/Anterior Approach and excision of a right hip mass(Right) - Koki German MD Medical History (Last Updated 12/25/20 @ 09:23 by Thao Rapp RN) Anemia Arthritis Arthritis of right hip Back pain Carpal tunnel syndrome of left wrist Deep vein thrombosis Former smoker Gout Hip fracture, left HLD (hyperlipidemia) Hypertension Osteoporosis PVCs (premature ventricular contractions) Right hip pain Physical Therapy Inpatient Evaluation/Re-Eval M1 PT/OT-IP Prior Functional Status Start: 12/29/20 17:36 Freq: NEEDED Status: Active Protocol: Document 12/29/20 17:30 DLM (Rec: 12/29/20 17:52 DLM [id number]) Medical Review Prior Functional Status Medical History Reviewed Yes Diet/Fluid Consistency Regular Communication WNL, glasses Mobility and Gait Independent with a cane to manage right hip pain, walks for exercise Activities of Daily Living and IADL's Independent Social History Household Members none Living Arrangements House Number of Floors (Floors) One Floor Number of Stairs To Enter/Railing? 3 no rail from garage, front door has 3x 1 step that fits the [facility] Home Environment High Toilet,Walk in Shower Home Equipment Front Wheel Walker,Straight Cane,Shower Seat with Backrest ,Hand Held Shower,Language Instructor,Sock Aid,Hospital Bed Additional Social History Comment her friend will be staying with her to help after discharge M2 PT-IP Current Condition Start: 12/29/20 17:36 Freq: NEEDED Status: Active Protocol: Document 12/29/20 17:30 DLM (Rec: 12/29/20 17:52 DLM [id number]) Physical Therapy Current Condition Current Condition Evaluation Date 12/29/20 Treatment Diagnosis right KELLY, anterior approach, impaired gait Onset Date 12/29/20 Precautions Anterior Hip Precautions No Hip Extension,No Hip External Rotation Other Precautions pt also had possible lipoma removed during this surgery on right hip Weight Bearing Status Weight Bearing Status Weight Bear as Tolerated M3 PT-IP Subjective Start: 12/29/20 17:36 Freq: NEEDED Status: Active Protocol: Document 09/07/21 17:30 DLM (Rec: 12/29/20 17:52 [facility] [id number]) Subjective Physical Therapy Visit Type Type Initial Evaluation Visit Start Time 14:46 Visit Stop Time 15:30 Total Visit Minutes 44 Number of MAIL DISTRIBUTION CLERK Visits 0 Physical Therapy Visit Comments Patient Comments she has borrowed equipment to use after surgery Patient Goals discharge home with friend to help Therapy Pain Assessment Pain When Pain Assessed During Mobility Pain Present Pain Present Pain Reported Location Right Hip Intensity 1 Scale Used Numeric (0 - 10) Description Aching Pain Management Techniques Re-positioning M4 PT-IP Mobility and Gait Start: 12/29/20 17:36 Freq: NEEDED Status: Active Protocol: Document 12/29/20 17:30 DL (Rec: 12/29/20 17:52 [facility] [id number]) PT-Bed Mobility Assessment Supine to Sit Supine to Sit Standby Assistance Sit to Supine Sit to Supine Standby Assistance Scooting Scooting to Edge of Bed Independent Scooting Up and Down in Bed Independent PT-Transfer Assessment Sit to and From Stand Sit to and from Stand Standby Assistance,Use of Upper Extremities Equipment Transfer Assistive Device Gait Belt,Front Wheeled Walker Transfers Transfer Destination Bed,Chair Transfer Technique Stand Step Pivot Transfer Ability Level of Assist Standby Assistance,Use of Upper Extremities Comments Mobility Comments intermittent verbal cues for safe technique with fWW Gait Assessment Gait Gait Assistance Required: Standby Assistance Distance (Feet) 20 Assistive Devices Assistive Device Gait Belt,Front Wheeled Walker Gait Deviations General Gait Pattern Antalgic,Decreased Stride Length Factors Limiting Gait Function Factors Limiting Gait Function Decreased Activity Tolerance, Decreased Strength,Pain Comments Gait Comments she demonstrates safe use of the FWW, no light-headedness that limits activity this treatment, Vital signs are stable, no nausea, pt wanted to return to bed for dinner Stair Climbing Assessment Comments Stair Climbing Comments defer to next visit PT-Balance Assessment Sitting Balance and Reactions Static Sitting Balance Ability Normal Dynamic Sitting Balance Ability Good Standing Balance and Reactions Static Standing Balance Ability Good Dynamic Standing Balance Ability Good Device Used FWW M5 PT-IP Objective Assessments Start: 12/29/20 17:36 Freq: NEEDED Status: Active Protocol: Document 12/29/20 17:30 DL (Rec: 12/29/20 17:52 [facility] [id number]) Orientation Orientation/Cognition Level of Alertness Alert Orientation Name,Age,Birthday,Month,Date, Year,Day of Week,Place, Situation Language Function Ability No Deficits Noted Safety Awareness Understands Safety Issues Memory Description No Deficits Noted Gross Range of Motion Upper Extremity ROM Assessment Within Functional Limits Lower Extremity ROM Assessment Right Impaired Impairments post-op KELLY limitations Strength Upper Extremity Strength Assessment Within Functional Limits Lower Extremity Strength Assessment Right Impaired Hip hip flexion at least 3/5 Knee ext 4+/5 Ankle DF 5/5 Coordination Assessment Gross Coordination Gross Coordination WNL Sensation Assessment Comments Sensation Comments she reports numbness right hand area since surgery Muscle Tone Muscle Tone WNL Yes M6 PT-IP Treatment Start: 12/29/20 17:36 Freq: NEEDED Status: Active Protocol: Document 12/29/20 17:30 DLM (Rec: 12/29/20 17:52 DL [id number]) Physical Therapy Treatment Exercises Exercises Ankle Pumps Education Education Provided Weight Bearing Status,Post-Op Packet,Safety Other Treatments Other Treatment Performed she has FWW for home use in her room M7 PT-IP Assessment and Plan Start: 12/29/20 17:36 Freq: NEEDED Status: Active Protocol: Document 12/29/20 17:30 DLM (Rec: 12/29/20 17:52 DL [id number]) PT Summary Assessment and Plan Potential Rehabilitation Potential Excellent Status of Condition at Evaluation Evolving Summary Impairments Pain,ROM,Strength,Balance,Bed Mobility,Transfers,Gait, Activity Tolerance Assessment Summary Robert is alert and resting in bed this visit. She was admitted for right KELLY with anterior approach today. She reports having minimal pain at this time. She tolerated gait in her room with fWW and up to recliner. She wished to return to bed for supper. She tolerated mobility/gait well and is progressing well. Anticipate she will be able to discharge home tomorrow if she continues to progress well . She hawa a friend who will be helping her at home after discharge. Will plan to do stair training tomorrow. Goals Bed Mobility Goal Independent Transfer Goal Independent,Front Wheeled Walker Gait Goal Independent,Front Wheel Walker Gait Distance 150 feet Other Goals Up and down curb type step with FWW and SBA Days to Meet Goals 2 Frequency of Treatment Frequency Of Treatment Twice a Day Treatment Plan Physical Therapy Treatment Plan Bed Mobility Training,Transfer Training,Gait Training, Therapeutic Exercise,Balance Retraining,Post Op Education, Discharge Planning,Hot or Cold Pack,Neuromuscular Re-ed Recommendations To Nursing Amount of Assist Needed Standby Assistance Discharge Recommendations PT Discharge Recommendations Home with Assistance,Home Health Other Discharge Recommendations pt requesting home health to addresss her concerns about mobility in her home Transportation Needs at Discharge Private Vehicle
[2020-12-29] MEDS: ATORVASTATIN 20 MG TABLET PO (20:24)
[2020-12-29] MEDS: DOCUSATE 100 MG CAPSULE PO (20:24)
[2020-12-29] MEDS: lisinopriL 20 MG TABLET PO (20:26)
[2020-12-29] MEDS: ASPIRIN EC 81 MG TABLET PO (20:27)
[2020-12-30] MEDS: IBUPROFEN 400 MG TABLET PO ×3 (00:13→08:42)
[2020-12-30] MEDS: CEFAZOLIN 1 GM VIAL 2 GM IV (00:13)
[2020-12-30 03:00] VITALS: BP 122/66; PULSE 52; RESP 16; TEMP 36.1; O2SAT 95
[2020-12-30 06:52] LABS: Hematocrit 30.5 % (36-46); Hemoglobin 10.4 g/dL (12.0-16.0)
[2020-12-30 07:00] VITALS: BP 126/48; PULSE 42; RESP 16; TEMP 36.1; O2SAT 96
--- NOTE | 2020-12-30 07:49 | PM.DS.1 ---
History of Present Illness History of Present Illness Date Patient Seen: 12/30/20 Time Patient Seen: 07:49 Chief complaint: Right hip pain Narrative: Pain is [id number]. Denies fever or chills. No nausea or vomiting. Patient has a friend at home that will assist her. Discharge Providers Provider Discharge Date: 12/30/20 Primary care physician: Dinora King MD Consults: 12/29/20 06:00 Consult to Anesthesiology Routine Comment: Consulting Provider: Anesthesiologist Reason for consultation: Regional block for post operative pain control 12/29/20 12:11 Consult to Discharge Planning Routine Comment: Consult to Physical Therapy Evaluate & Treat Comment: Physician Instructions: post op KELLY protocol Consult to Respiratory Therapy Evaluate & Treat Comment: Physician Instructions: Evaluate and treat Discharge provider: Doug Perez PA-C Summary Hospital Course Discharge Diagnosis: Right hip osteoarthritis Hospital Course: Right total hip arthroplasty anterior approach, excision right hip soft tissue mass Same procedure as scheduled: Yes Indications: The patient has had progressively worsening right hip pain with radiographic changes consistent with arthritis. Non-operative management has failed and the patient has requested total hip replacement. The risks, benefits and alternatives to surgery were discussed with the patient prior to proceeding. Risks discussed included, but were not limited to, failure to relieve pain, leg length discrepancy, dislocation, stiffness, infection, nerve damage, deep venous thrombosis, pulmonary embolism, stroke, coma, heart attack, permanent paralysis and , as well as the potential need for eventual revision of the prosthetic. She also has a small subcutaneous mass about 3 cm on the anterior aspect of her hip. I have recommended excision of this. Surgeon: Koki German Altitude Chamber Technician: Tami Fraga Anesthesia Type: General and Spinal Operative Notes Findings: Severe arthritis, adequate bone, adequate stability, small subcutaneous mass 3.5 by 2 cm fatty appearance Closure Type: primary Specimen(s): other (Soft tissue mass sent for pathology) Prosthetic devices, grafts, tissues, transplants, or devices: [employer] anthology standard offset 12, 56 R3 cup, +0 oxininium head, neutral liner 36, two 6.5 mm screws Estimated Blood Loss (mL): 250 Blood products transfused: none Patient admitted to the hospital for right total hip arthroplasty, anterior approach and excision right hip soft tissue mass. Patient consented to the same. Patient taken to operating room on December 29, 2020. Patient underwent the above-mentioned procedure. Back in her room recovering well as in stable condition. Patient will be discharged home today after physical therapy if safe for home environment. Status at Discharge Cognitive/behavioral status at discharge: at baseline, oriented Functional status at discharge: uses cane/walker Overall status at discharge: patient is progressing back to baseline Exam Vital Signs (past 8 hours): - 12/29/20 23:50 12/30/20 03:00 Temperature 97.3 F L 97.0 F L Pulse Rate 70 52 L Respiratory Rate 16 16 Blood Pressure 131/55 L 122/66 Pulse Oximetry 95 95 Oxygen Delivery Method Room Air Oxygen Flow Rate 0 Narrative Exam Narrative: 75-year-old female resting comfortably in bed no apparent distress. Right hip dressing is Clean, dry, intact.. Motor function is intact bilateral lower extremities. Sensation grossly intact to light touch bilateral lower extremities. Both lower extremities are warm and dry. Objective Labs Result Diagrams: 12/30/20 06:06 Labs: Laboratory Results - last 24 hr 12/29/20 12/30/20 07:21 06:06 Hgb 10.4 L Hct 30.5 L Urine Color Yellow Urine Appearance Clear Urine pH 6.0 Ur Specific [place] 1.020 Urine Protein Negative Urine Glucose (UA) Trace H Urine Ketones Negative Urine Occult Blood Trace-lysed Urine Nitrate Negative Urine Bilirubin Negative Urine Urobilinogen 0.2 Ur Leukocyte Esterase Negative Urine RBC 0-1/hpf Urine WBC 0-1/hpf Ur Squamous Epith Cells 0-1 /hpf Amorphous Sediment 1+ Urine Bacteria Occasional (0-1) Urine Mucus 1+ H Ur Culture Indicated? Specimen cultured [facility] Medical History Anemia Arthritis Arthritis of right hip Back pain Carpal tunnel syndrome of left wrist Deep vein thrombosis Former smoker Gout Hip fracture, left HLD (hyperlipidemia) Hypertension Osteoporosis PVCs (premature ventricular contractions) Right hip pain Surgical History History of left hip replacement History of removal of Port-a-Cath (2003) History of tonsillectomy History of total abdominal hysterectomy and bilateral salpingo-oophorectomy Social History household members: none Smoking Status: Former smoker alcohol intake: current substance use type: does not use Discharge Assessment & Plan Assessment and Plan Assessment: Patient progressing as expected status post right hip total hip arthroplasty, anterior approach Plan of Treatment: Weight-bearing as tolerated. Anterior hip precautions. Aspirin for DVT prophylaxis. Discharge home today after physical therapy if safe for home environment. Discharge Plan Discharge Plan Patient Disposition: Home Discharge orders & Medications Discharge Orders: Discharge (Order); Ordered 12/30/20 Ordered By: Doug Perez Prescriptions: New acetaminophen 325 mg Tablet 650 mg PO TID Qty: 60 RF: 0 aspirin 81 mg Tablet,Delayed Release (Dr/Ec) 81 mg PO BID Qty: 60 RF: 0 ibuprofen 400 mg Tablet 400 mg PO Q4HR Qty: 60 RF: 0 oxycodone 5 mg Tablet 5 mg PO Q3HR PRN (Reason: Pain, Moderate (4-6)) Qty: 40 RF: 0 docusate sodium 100 mg Capsule 100 mg PO BID Qty: 20 RF: 0 Continued atorvastatin 20 mg Tablet 20 mg PO BEDTIME RF: 0 lisinopril 20 mg Tablet 20 mg PO QPM RF: 0 diltiazem HCl 360 mg Capsule,Extended Release 24 Hr 360 mg PO QAM RF: 0 Follow up/Referrals: Dinora King MD [Primary Care Provider] - Koki German MD [Physician] - (2 weeks) Diet/Activity/Treatments Diet: Diet as Tolerated Activity: Weight-bearing as tolerated, anterior hip precautions Cold/Heat Therapy: Apply ice to hip as needed Skin/Wound/Dressing Care Report to your healthcare provider any signs of infection, such as:: chills, fever, increased pain, unusual drainage and unusual redness Dressing: Keep dressing clean and dry Visit Report/Discharge Packet Instructions: DI for Hip Replacement Stand Alone Forms: Surgery Discharge Discharge Data Primary Care Provider: Dinora King Attending Provider: Koki German
[2020-12-30] MEDS: ACETAMINOPHEN 325 MG TABLET 650 MG PO (08:42)
[2020-12-30] MEDS: dilTIAZem CD 180 MG CAP 360 MG PO (08:42)
[2020-12-30] MEDS: ASPIRIN EC 81 MG TABLET PO (08:42)
--- NOTE | 2020-12-30 09:25 | PT.IPTN ---
Current Diagnoses Unilateral primary osteoarthritis, right hip (12/29/20) Pain in right hip (12/29/20) Surgery Performed Operation Date: 12/29/20 07:45 Actual Procedures p Total Hip Arthroplasty/Anterior Approach and excision of a right hip mass(Right) - Koki German MD Physical Therapy Treatment Note M2 PT-IP Current Condition Start: 12/29/20 17:36 Freq: NEEDED Status: Active Protocol: Document 12/29/20 17:30 DLM (Rec: 12/29/20 17:52 DLM [id number]) Physical Therapy Current Condition Current Condition Evaluation Date 12/29/20 Treatment Diagnosis right KELLY, anterior approach, impaired gait Onset Date 12/29/20 Precautions Anterior Hip Precautions No Hip Extension,No Hip External Rotation Other Precautions pt also had possible lipoma removed during this surgery on right hip Weight Bearing Status Weight Bearing Status Weight Bear as Tolerated M3 PT-IP Subjective Start: 12/29/20 17:36 Freq: NEEDED Status: Active Protocol: Document 12/30/20 08:55 SP (Rec: 12/30/20 09:46 SP [id number]) Subjective Physical Therapy Visit Type Type Treatment Note Visit Start Time 08:55 Visit Stop Time 09:25 Total Visit Minutes [address]INEER Visits 1 Physical Therapy Visit Comments Patient Comments Pt willing to work with therapy. Patient Goals discharge home with friend to help, has borrowed equipment to use at home. Therapy Pain Assessment Pain When Pain Assessed During Mobility Pain Present Pain Present Pain Reported Location Right Hip Intensity 1 Scale Used Numeric (0 - 10) Description Aching Pain Management Techniques Apply Cold,Re-positioning, Timing of Activity with Medications M4 PT-IP Mobility and Gait Start: 12/29/20 17:36 Freq: NEEDED Status: Active Protocol: Document 12/30/20 08:55 SP (Rec: 12/30/20 09:46 SP [id number]) PT-Bed Mobility Assessment Supine to Sit Supine to Sit Independent Sit to Supine Sit to Supine Independent Scooting Scooting to Edge of Bed Independent Scooting Up and Down in Bed Independent PT-Transfer Assessment Sit to and From Stand Sit to and from Stand Standby Assistance,Use of Upper Extremities Equipment Transfer Assistive Device Gait Belt,Front Wheeled Walker Transfers Transfer Destination Bed Transfer Technique pt ambulated using FWW Transfer Ability Level of Assist Standby Assistance,Use of Upper Extremities Comments Mobility Comments ELevated supine when arrived. Reviewed post op ex AROM. completed supine<>sit, scoot to EOB with BLE together self active performance while maintaining precautions independently. PT donned slip on shoes Indep seated at EOB, Sit<> stand SBA but therapist had to elevated personal FWW due to to low with shoes donned. Ambulated further in to hallway to PF step and completed (CGA>SBA) then around nursing station and returned to bed in room using FWW SBA and stable, occasional cues for not allowing LLE pass RLE to maintain no hip ext precautions with good self corrections rest tx. Stand> sit> scoot up in bed self I using BUE as needed for mobility. Pt had call light and all needs in reach before left. Pt continued request HHPT, might be challenged to get ride assist if has outpt PT. SENIOR RD ENGINEER discussed will ask care mgt dept but mobilizing well to be able to attend outpt and more beneficial activities can perform in that setting. SENIOR RD ENGINEER discussed with nursing and care mgt Sherita pt 's request but is ableto return home with friend to assist her when medically stable. Gait Assessment Gait Gait Assistance Required: Standby Assistance Distance (Feet) 230 Able to Maintain Weight Bearing Status Yes During Gait Assistive Devices Assistive Device Gait Belt,Front Wheeled Walker Gait Deviations General Gait Pattern Antalgic,Decreased Stride Length Factors Limiting Gait Function Factors Limiting Gait Function Decreased Activity Tolerance, Decreased Strength,Pain Comments Gait Comments see mobility details Stair Climbing Assessment Evaluation Level of Assist On Stairs Standby Assistance,Contact Guard Assistance Devices Stair Climbing Assistive Devices Front Wheel Walker Technique/Endurance Stair Climbing Direction Ascend and Descend Stair Climbing Technique Step to Step Number of Steps Climbed 1 Stair Climbing Set # Repetitions (reps) 3 Comments Stair Climbing Comments Ascend/descend 3 PF step using FWW, CGA intially then sBA. PT-Balance Assessment Sitting Balance and Reactions Static Sitting Balance Ability Normal Dynamic Sitting Balance Ability Normal Standing Balance and Reactions Static Standing Balance Ability Good Dynamic Standing Balance Ability Good Device Used FWW M5 PT-IP Objective Assessments Start: 12/29/20 17:36 Freq: NEEDED Status: Active Protocol: Document 12/29/20 17:30 DLM (Rec: 12/29/20 17:52 DLM [id number]) Orientation Orientation/Cognition Level of Alertness Alert Orientation Name,Age,Birthday,Month,Date, Year,Day of Week,Place, Situation Language Function Ability No Deficits Noted Safety Awareness Understands Safety Issues Memory Description No Deficits Noted Gross Range of Motion Upper Extremity ROM Assessment Within Functional Limits Lower Extremity ROM Assessment Right Impaired Impairments post-op KELLY limitations Strength Upper Extremity Strength Assessment Within Functional Limits Lower Extremity Strength Assessment Right Impaired Hip hip flexion at least 3/5 Knee ext 4+/5 Ankle DF 5/5 Coordination Assessment Gross Coordination Gross Coordination WNL Sensation Assessment Comments Sensation Comments she reports numbness right hand area since surgery Muscle Tone Muscle Tone WNL Yes M6 PT-IP Treatment Start: 12/29/20 17:36 Freq: NEEDED Status: Active Protocol: Document 12/30/20 08:55 SP (Rec: 12/30/20 09:46 SP [id number]) Physical Therapy Treatment Exercises Exercises Ankle Pumps,Gluteal Sets,Quad Sets,Heel Slides Knee ROM Measurement 80deg knee flexion Education Education Provided Weight Bearing Status,Post-Op Packet,Safety Other Treatments Other Treatment Performed she has FWW for home use in her room M7 PT-IP Assessment and Plan Start: 12/29/20 17:36 Freq: NEEDED Status: Active Protocol: Document 12/30/20 08:55 SP (Rec: 12/30/20 09:46 SP [id number]) PT Summary Assessment and Plan Potential Rehabilitation Potential Excellent Status of Condition at Evaluation Evolving Summary Impairments Pain,ROM,Strength,Balance,Bed Mobility,Transfers,Gait, Activity Tolerance Progress Towards Goals Progressing Toward Goals Assessment Summary Pt I with bed mobility, SBA with rest of mobility using FWW further distance 230 ft good self corrections post education, completed 3 PF step mgt using FWW CGA> SBA. Pt is ok to return home with friend to assist. Goals Bed Mobility Goal Independent Transfer Goal Independent,Front Wheeled Walker Gait Goal Independent,Front Wheel Walker Gait Distance 150 feet Other Goals Up and down curb type step with FWW and SBA Days to Meet Goals 2 Frequency of Treatment Frequency Of Treatment Twice a Day Treatment Plan Physical Therapy Treatment Plan Bed Mobility Training,Transfer Training,Gait Training, Therapeutic Exercise,Balance Retraining,Post Op Education, Discharge Planning,Hot or Cold Pack,Neuromuscular Re-ed Other Recommendations and Next Treatment LE ex, gait further distance Focus LRAD Precautions Anterior Hip Precautions No Hip Extension,No Hip External Rotation Recommendations To Nursing Amount of Assist Needed Standby Assistance Discharge Recommendations PT Discharge Recommendations Home with Assistance,Home Health,Outpatient PT Other Discharge Recommendations pt requesting home health to addresss her concerns about mobility in her home Transportation Needs at Discharge Private Vehicle
== END 2020-12-30 10:44 | disposition home or self-care (01) ==
LOC: OR 06:02 → AC 06:08
PROVIDERS: PCP Student in an Organized Health Care Education/Training Program; Referring Provider Student in an Organized Health Care Education/Training Program; Visit Provider Orthopaedic Surgery
PROC: (CPT 27130; principal; 2020-12-29 07:45)
DX: M16.11 Unilateral primary osteoarthritis, right hip (principal); I10 Essential (primary) hypertension; E78.5 Hyperlipidemia, unspecified; I25.2 Old myocardial infarction; D17.1 Benign lipomatous neoplasm of skin and subcutaneous tissue of trunk
CPT/HCPCS: 27130; 36415; 73502; 76000; 81001; 85014; 85018; 87086; 94762; 97116; 97162; 97530; C1776; J0171; J0690; J1100; J2250; J2274; J2405; J2704; J3010

== ENCOUNTER → 2021-02-19 14:21 | Outpatient (CLI) | payer MEDICARE, OTHER, SELFPAY ==
[2020-12-29 12:14] VITALS: BMI 26.3
--- NOTE | 2021-02-19 | DI.RAD.S_ITS ---
PROCEDURE: XR DEXA AXIAL SKELETON INDICATIONS: asymptomatic postmenopausal state COMPARISON: [facility], CR, XR DEXA AXIAL SKELETON, 11/17/2017, 10:22. FINDINGS: This blank DEXA report has been sent in error by the PACS system. The correct and complete report will be forthcoming in 1-2 days. Thank you for your patience and understanding. Dictated by: Ernestina Quispe MD, PhD on 02/19/2021 at 17:44 Approved by: Ernestina Quispe MD, PhD on 02/19/2021 at 17:44
== END ==
PROVIDERS: PCP Student in an Organized Health Care Education/Training Program; Referring Provider Student in an Organized Health Care Education/Training Program; Visit Provider Student in an Organized Health Care Education/Training Program
DX: Z78.0 Asymptomatic menopausal state (principal); M81.0 Age-related osteoporosis without current pathological fracture
CPT/HCPCS: 77080; 77081

== ENCOUNTER → 2021-09-07 15:54 | Outpatient (CLI) | payer MEDICARE, OTHER, SELFPAY ==
[2020-12-29 12:14] VITALS: BMI 26.3
--- NOTE | 2021-09-07 | DI.ECHO.S_ITS ---
[place] [facility]---------+ [facility] +---------+ : : [address] : : : : [id number] : : : : Phone: [phone]+ Echocardiogram Report + + :Name: STEFANIE ROSENBERG V Study Date: 09/07/2021 Height: 68 in : :[facility] ReadingLocation: Weight: 180 lb : : Gender: Female BSA: 2.0 m2 : :: 1945 Age: 76 yrs BP: 161/87 mmHg: :Reason For Study: VENTRICULAR PREMATURE DEPOLARIZATION : :Ordering Physician: LENORA, : :ALYSON Performed By: Joann Okeefe : :Referring: ALYSON COOLEY C : + + Interpretation Summary 1) Normal left ventricilar size, thickness, wall motion, and systolic function (EF 55-60%). 2) The right ventricle is mildly dilated and has normal function. 3) There is mild mitral regurgitation. 4) Hypertension present during the study (BP 161/87mm Hg). 5) Compared to the Echo done 07/13/2021, mild mitral regurgitation is present on this study and trivial pericardial effusion has resolved on this study. Procedure: A two-dimensional transthoracic echocardiogram with color flow and Doppler was performed. The study quality was technically adequate. Comparison is made with the echocardiogram of 07/13/2020. The patient was in sinus rhythm with heart rates between 59-67 bpm during the exam. Left Ventricle: The left ventricle is normal in size and wall thickness. The ejection fraction is estimated to be 55-60%. Left ventricular systolic function appears normal without focal wall motion abnormalities. Right Ventricle: The right ventricle is mildly dilated. The right ventricular systolic function is normal. Atria: The left atrium is severely dilated. The right atrium is mild to moderately dilated. There is no Doppler evidence for an interatrial shunt. Mitral Valve: There is mild to moderate mitral annular calcification. The mitral valve leaflets appear mildly thickened, but open well. There is mild mitral regurgitation. Aortic Valve: The aortic valve is trileaflet. The aortic valve opens well. There is no aortic valve stenosis. No aortic regurgitation is present. Tricuspid Valve: The tricuspid valve is normal in structure and function. There is mild tricuspid regurgitation. The right ventricular systolic pressure is estimated to be at least 38 mmHg based on an estimated right atrial pressure of 8 mm Hg. Pulmonic Valve: The pulmonic valve is not well seen, but is grossly normal. There is a trace or physiologic amount of pulmonic regurgitation. Great Vessels: The aortic root is normal size. The ascending aorta is at the upper limits of normal in size. The IVC is dilated (diameter is greater than 2.1 cm) yet it collapses greater than 50% with a sniff. This suggests a right atrial pressure of 8 mm Hg. Pericardium/ Pleura There is no pericardial effusion. There is no pleural effusion. MMode/2D Measurements & Calculations LVIDd: 5.1 cm LVOT diam: 2.0 cm LVIDs: 3.7 cm Ao root diam: 3.0 cm FS: 28.6 % asc Aorta Diam: 3.8 cm IVSd: 0.87 cm Ao Arch Diam (Prox Trans): 2.5 cm LVPWd: 0.97 cm LV tuttle. diameter/BSA (cm/m^2): 2.6 LV sys. diameter/BSA (cm/m^2): 1.9 LA A2 area: 27.7 cm2 RA long axis: 6.0 cm LA A4 area: 27.7 cm2 RA area: 24.3 cm2 LA length (vol): 6.1 cm RA vol: 83.7 ml LA vol: 105.9 ml RA : 42.8 ml/m2 LA vol index: 54.2 ml/m2 IVC diam: 2.1 cm RVD1 (basal): 4.6 cm TAPSE: 2.7 cm Doppler Measurements & Calculations Ao V2 max: 160.4 cm/sec LVOT Max Albert: 92.2 cm/sec Ao V2 mean: 119.7 cm/sec LV V1 max P.4 mmHg Ao max P.3 mmHg LV V1 VTI: 22.8 cm Ao mean P.2 mmHg HAL(I,D): 1.7 cm2 Ao V2 VTI: 41.5 cm HAL(V,D): 1.8 cm2 sev ratio: 0.55 HAL indexed to BSA (cm^2/m^2): 0.86 MV E max albert: 84.8 cm/sec TR max albert: 277.5 cm/sec MV A max albert: 143.9 cm/sec TR max P.8 mmHg MV E/A: 0.59 PA V2 max: 90.9 cm/sec Med Peak E' Albert: 5.8 cm/sec PA V2 mean: 63.3 cm/sec E/E' med: 14.6 PA mean P.8 mmHg Lat Peak E' Albert: 6.0 cm/sec AYLA pr(Accel): 34.5 mmHg E/E' lat: 14.2 E/e' average: 14.4 MV dec time: 0.24 sec SV(LVOT): 69.5 ml Reading Physician:10:32 AM
== END ==
PROVIDERS: PCP Student in an Organized Health Care Education/Training Program; Referring Provider Physician Assistant; Visit Provider Physician Assistant
DX: I49.3 Ventricular premature depolarization (principal); I08.1 Rheumatic disorders of both mitral and tricuspid valves
CPT/HCPCS: 93306

== ENCOUNTER → 2021-12-28 09:33 | Outpatient (CLI) | payer MEDICARE, OTHER, SELFPAY ==
[2020-12-29 12:14] VITALS: BMI 26.3
[2021-12-28 10:03] LABS: Add Manual Diff / Slide Review NO; Basophils Absolute Auto 0 /uL (0-100); Basophils Percent Auto 0.7 % (0-2); Eosinophils Absolute Auto 200 /uL (0-450); Hematocrit 35.7 % (36-46); Hemoglobin 12.4 g/dL (12.0-16.0); Lymphocytes Absolute Auto 2300 /uL (1100-4500); Lymphocytes Percent Auto 35.7 % (25-40); Mean Corpuscular HGB Conc 34.7 % (30-36); Mean Corpuscular Volume 89.3 fL (80-100); Monocytes Absolute Auto 800 /uL (0-900); Monocytes Percent Auto 12.4 % (3-14); Neutrophils Absolute Auto 3100 /uL (1500-7000); Neutrophils Percent Auto 48.2 % (50-75); Platelet Count 234 X10^3/uL (150-400); Red Blood Cell Count 3.99 X10^6/uL (4.0-5.2); Red Cell Distribution Width 13.2 % (11.6-14.8); White Blood Cell Count 6.3 X10^3/uL (4.5-11.0)
[2021-12-28 10:18] LABS: Alanine Aminotransferase 24 IU/L (<35); Albumin 4.3 g/dL (3.5-5.0); Albumin Globulin Ratio 1.4 (1.0-2.8); Alkaline Phosphatase 65 U/L (38-126); Aspartate Aminotransferase 29 IU/L (14-36); Bilirubin Total 0.5 mg/dL (0.2-1.3); Blood Urea Nitrogen 11 mg/dL (7-17); Calcium 8.7 mg/dL (8.4-10.2); Carbon Dioxide 29 mmol/L (22-32); Chloride 102 mmol/L (98-107); Estimated Glomerular Filt Rate > 60 mL/min (>60); Glucose 98 mg/dL (80-110); HEMOLYSIS < 15 (0-50); Lactate Dehydrogenase 450 U/L (313-618); Potassium 3.8 mmol/L (3.4-5.1); Sodium 137 mmol/L (137-145); Total Protein 7.3 g/dL (6.3-8.2)
[2021-12-28 11:03] LABS: Cholesterol 149 mg/dL (140-199); HDL Cholesterol 75 mg/dL (40-60); LDL Cholesterol Calculated 65 mg/dL (<100); Triglycerides 43 mg/dL (35-150)
[2021-12-29 12:36] LABS: Free Kappa Lt Chains, Serum 17.3 mg/L (3.3-19.4); Free Lambda Lt Chains,Serum 8.7 mg/L (5.7-26.3)
[2021-12-30 04:44] LABS: Beta-2-Microglobulin 1.6 mg/L (0.6-2.4)
== END ==
PROVIDERS: Internal Medicine Hematology & Oncology; PCP Internal Medicine; Referring Provider Internal Medicine Cardiovascular Disease; Visit Provider Internal Medicine Cardiovascular Disease
DX: E78.5 Hyperlipidemia, unspecified (principal); C88.0 Waldenstrom macroglobulinemia
CPT/HCPCS: 36415; 80053; 80061; 82232; 83615; 83883; 85025

== ENCOUNTER → 2022-01-06 15:46 | Outpatient (CLI) | payer MEDICARE, OTHER, SELFPAY ==
[2020-12-29 12:14] VITALS: BMI 26.3
--- NOTE | 2022-01-06 15:50 | DI.MG.S_ITS ---
BILATERAL DIGITAL SCREENING MAMMOGRAM 3D/2D WITH CAD: 01/06/2022 CLINICAL: Routine screening. Comparison is made to exams dated: 12/24/2020 mammogram, 12/24/2019 mammogram, and 08/20/2018 mammogram - [facility]. Both breasts are heterogeneously dense, which may obscure small masses (category c / 51-75% glandular tissue). Current study was also evaluated with a Computer Aided Detection (CAD) system. There are benign calcifications in both breasts. No significant masses, calcifications, or other findings are seen in either breast. There has been no significant interval change. IMPRESSION: BENIGN There is no mammographic evidence of malignancy. A 1 year screening mammogram is recommended. Based on the Tyrer Cuzick model (a risk assessment model) the patient's lifetime risk is 6.3% and her 10 year risk is 0.0%. According to the ACR, ACS, and NCCN guidelines, an annual breast MRI exam along with mammogram is recommended if the patient's lifetime risk is 20% or greater. This exam was interpreted at Station ID: [id number]. NOTE: For mammograms, a report in lay terms will be sent to the patient. Approximately 15% of breast malignancies will not be visualized mammographically. In the management of a palpable breast mass, a negative mammogram must not discourage biopsy of a clinically suspicious lesion. Electronically Signed By: Jack benitez/j luis:01/07/2022 08:35:35 letter sent: Normal Exam ACR BI-RADS Category 2: Benign Finding(s) 3342F
== END ==
PROVIDERS: PCP Internal Medicine; Referring Provider Internal Medicine; Visit Provider Internal Medicine
DX: Z12.31 Encounter for screening mammogram for malignant neoplasm of breast (principal)
CPT/HCPCS: 77063; 77067

== ENCOUNTER → 2022-03-23 11:40 | Outpatient (CLI) | payer MEDICARE, OTHER, SELFPAY ==
[2020-12-29 12:14] VITALS: BMI 26.3
[2022-03-23 12:51] LABS: Troponin I < 0.012 ng/mL (0.01-0.034)
== END ==
PROVIDERS: PCP Internal Medicine; Referring Provider Internal Medicine Cardiovascular Disease; Visit Provider Internal Medicine Cardiovascular Disease
DX: R07.9 Chest pain, unspecified (principal)
CPT/HCPCS: 36415; 84484

== ENCOUNTER → 2022-11-15 15:52 | Outpatient (CLI) | payer MEDICARE, SELFPAY ==
[2020-12-29 12:14] VITALS: BMI 26.3
--- NOTE | 2022-11-15 15:53 | DI.RAD.S_ITS ---
PROCEDURE: XR FEMUR LT MIN 2V INDICATIONS: leg pain TECHNIQUE: 2 views of the femur were acquired. COMPARISON: [facility] [place], CR, XR PELVIS WITH LATERAL HIP RIGHT, 12/23/2020, 8:43. FINDINGS: Bones: Stable appearance of left hip arthroplasty. No periprosthetic fractures or evidence of loosening/infection. Mild tricompartmental left knee joint degeneration. Soft tissues: No suspicious soft tissue calcifications or masses. Vascular calcifications indicate atherosclerosis. IMPRESSION: Stable appearance of left hip arthroplasty. Dictated by: Alex Rocha [facility] Interpreted: Pawel Santoro MD on 11/15/2022 at 16:17 Transcribed by: TATIANNA on 11/15/2022 at 16:18 Approved by: Pawel Santoro M.D. on 11/15/2022 at 21:08
== END ==
PROVIDERS: PCP Internal Medicine; Referring Provider Internal Medicine; Visit Provider Internal Medicine
DX: M17.12 Unilateral primary osteoarthritis, left knee (principal); M79.652 Pain in left thigh; M81.0 Age-related osteoporosis without current pathological fracture; Z96.642 Presence of left artificial hip joint
CPT/HCPCS: 73552

== ENCOUNTER → 2022-11-21 15:18 | Outpatient (CLI) | payer MEDICARE, SELFPAY ==
[2020-12-29 12:14] VITALS: BMI 26.3
--- NOTE | 2022-11-21 | DI.RAD.S_ITS ---
Bone Density Report Name: STEFANIE ROSENBERG V Age: 77 Sex: Female Ethnicity: White Date of : 1945 Indication: postmenopausal; screening for osteoporosis; Referring Provider: SWETHA RICKETTS Study: Bone densitometry was performed. Exam Date: November 21, 2022 Accession number: [id number] Bone Density: Region BMD T-score Z-score Classification AP Spine(L2, L3, L4) 1.082 0.0 2.7 Normal Total Forearm (Left) 0.374 -3.8 -1.0 Osteoporosis 1/3 Forearm (Left) 0.431 -4.4 -1.5 Osteoporosis UD Forearm (Left) 0.263 -3.1 -1.1 Osteoporosis World Health Organization criteria for BMD impression classify patients as: Normal (T-score at or above -1.0), Osteopenia (T-score between -1.0 and -2.5), or Osteoporosis (T-score at or below -2.5). Previous Exams: -- Region Exam Age BMD T-score BMD Change BMD Change Date g/cm2 vs Baseline vs Previous -- AP Spine (L2-L4) 11/21/2022 77 1.082 0.0 0.038 (3.6%)# 0.038 (3.6%)# 02/19/2021 76 1.044 -0.3 -- *Denotes significance at 95% confidence level, LSC for AP Spine = 0.022 g/cm2 # Denotes dissimilar scan types or analysis methods Impression: The patient has normal bone mass. No significant bone loss was observed. Discussion: LOW RISK OF FRACTURE; BONE DENSITY IS WELL ABOVE THE MINIMUM DESIRABLE LEVEL AND ABOVE AVERAGE FOR AGE AND SEX AT ALL SKELETAL SITES TESTED. This person's bone density is above expected limits for age and sex. This is rarely clinically significant, but should be pursued if there are significant musculoskeletal complaints. The patient should follow a healthful lifestyle (good nutrition with adequate calcium and vitamin D, and appropriate weight-bearing exercise). Follow-Up: Consider repeating this study in 5 years or sooner if there is some new clinical indication. Reported by: GEORGE ARCOS M.D on 11/21/2022 3:41:00 PM.
== END ==
PROVIDERS: PCP Internal Medicine; Referring Provider Internal Medicine; Visit Provider Internal Medicine
DX: M81.0 Age-related osteoporosis without current pathological fracture (principal); Z13.820 Encounter for screening for osteoporosis; Z78.0 Asymptomatic menopausal state; Z79.83 Long term (current) use of bisphosphonates; Z87.311 Personal history of (healed) other pathological fracture; Z90.710 Acquired absence of both cervix and uterus
CPT/HCPCS: 77080

== ENCOUNTER → 2023-04-12 12:45 | Outpatient (CLI) | payer MEDICARE, SELFPAY ==
[2020-12-29 12:14] VITALS: BMI 26.3
--- NOTE | 2023-04-12 | DI.MG.S_ITS ---
BILATERAL DIGITAL SCREENING MAMMOGRAM 3D/2D WITH CAD: 04/12/2023 CLINICAL: Routine screening. Comparison is made to exams dated: 01/06/2022 mammogram, 12/24/2020 mammogram, 12/24/2019 mammogram, 08/20/2018 mammogram, and 08/11/2017 mammogram - [facility]. Both breasts are heterogeneously dense, which may obscure small masses (category c / 51-75% glandular tissue). Current study was also evaluated with a Computer Aided Detection (CAD) system. There are benign calcifications in both breasts. No significant masses, calcifications, or other findings are seen in either breast. There has been no significant interval change. IMPRESSION: BENIGN There is no mammographic evidence of malignancy. A 1 year screening mammogram is recommended. Based on the Tyrer Cuzick model (a risk assessment model) the patient's lifetime risk is 5.1% and her 10 year risk is 0.0%. According to the ACR, ACS, and NCCN guidelines, an annual breast MRI exam along with mammogram is recommended if the patient's lifetime risk is 20% or greater. This exam was interpreted at Station ID: [id number]. NOTE: For mammograms, a report in lay terms will be sent to the patient. Approximately 15% of breast malignancies will not be visualized mammographically. In the management of a palpable breast mass, a negative mammogram must not discourage biopsy of a clinically suspicious lesion. Electronically Signed By: Deyvi bray/j luis:04/12/2023 17:34:48 letter sent: Normal Exam ACR BI-RADS Category 2: Benign Finding(s) 3342F
== END ==
PROVIDERS: PCP Student in an Organized Health Care Education/Training Program; Referring Provider Student in an Organized Health Care Education/Training Program; Visit Provider Student in an Organized Health Care Education/Training Program
DX: Z12.31 Encounter for screening mammogram for malignant neoplasm of breast (principal)
CPT/HCPCS: 77063; 77067

== ENCOUNTER 2023-07-28 09:00 | Outpatient (RCR) | payer MEDICARE, SELFPAY ==
[2020-12-29 12:14] VITALS: BMI 26.3
--- NOTE | 2023-07-07 16:37 | PT.OIE ---
Current Diagnoses Stiffness of unspecified hip, not elsewhere classified (07/07/23) Stress incontinence (female) (male) (07/07/23) Unspecified urinary incontinence (07/07/23) Past Medical History (Last Updated 01/19/23 @ 08:34 by Brunilda Garzon MD) Anemia Arthritis Arthritis of right hip Back pain Carpal tunnel syndrome of left wrist Deep vein thrombosis Former smoker Gout Herpes (~1949) Hip fracture, left HLD (hyperlipidemia) Hypertension Osteoporosis (~2004) PVCs (premature ventricular contractions) Right hip pain Sleep apnea (~2021) Waldenstrom's disease (~2002) Past Surgical History (Last Updated 01/18/23 @ 19:46 by Ayse Sosa) Anesthesia History of left hip replacement (~2009) History of removal of Port-a-Cath (2003) History of right hip replacement (~2020) History of tonsillectomy History of total abdominal hysterectomy and bilateral salpingo-oophorectomy (~2002) Visit Care Team Role Provider Type Brunilda Garzon MD Attending Provider Physician Family Provider Primary Care Provider Referring Provider Specialty: Family Practice Obstetrics Address: [address] [place] [address] Email: 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 PT-OP-B Current Condition Start: 06/23/23 18:30 Freq: Status: Active Protocol: Document 07/07/23 09:04 LRN (Rec: 07/07/23 09:50 LRN [id number]) Current Condition History of Current Condition Onset Date 1 yr ago Current Complaints Urinary incontinence History of Current Condition Since turning age 65, pt has had urinary leakage with coughing, sneezing, lifting, getting up from gardening. A year ago she started to have to wear pantiliners. Self treated with Kegel ex's. BM daily or every other day and eats prunes if no BM for a day . Pt denies having pregnancies. Prior Treatments and Tests None Future Testing and Treatments Planned None Treatment Goals Patient/Caregiver Goals Pt goals: Learn what to do and not leak with coughing, sneezing and gardening activities. HEP. Personal Factors Other Personal Factors That May Effect Lives alone. Hip surgery L Therapy/Recovery posterior KELLY-2009, R anterior KELLY-2021. Heart arrhthmia. PT-OP-C Subjective Start: 06/23/23 18:30 Freq: Status: Active Protocol: Document 07/07/23 09:04 LRN (Rec: 07/07/23 09:50 LRN [id number]) Patient Questionnaires Pelvic Pain and Urgency/Frequency Patient Symptom Scale Pelvic Pain Score 1 PT-OP-I Pelvic Floor Start: 06/23/23 18:30 Freq: Status: Active Protocol: Document 07/07/23 09:04 LRN (Rec: 07/07/23 09:50 LRN [id number]) Pelvic Floor Assessment Urine Leakage Size Small Leakage Cause Cough,Exercise,Lifting,Sneeze Other Leakage Causes Exercise is walking in the yard and gardening. Leaks Per Day 2 Voiding Frequency 3-4 hrs Nocturia 1 Pads Used In 24 Hours 1 Urine Pad Type Panty Liner Bowel Bowel Movement Frequency daily or every other day Pelvic Clock Pelvic Clock 12-3 Tenderness,Tightness Pelvic Clock 3-6 Tenderness,Tightness Pelvic Clock 6-9 Tenderness,Tightness Pelvic Clock 9-12 Tenderness,Tightness Pelvic Clock Other Very small vaginal opening. Tissues dry and fragile. Prolapse Prolapse Comments Not able to assess due to PF discomfort with insertion of index finger up to first knuckle. Perineal Descent Resting Absent Bearing Absent Comments Pelvic Floor Comments Not able to assess PF strength or prolapse due to pain with insertion of index finger up to first knuckle. PT-OP-J Posture/Palpation/Skin Start: 06/23/23 18:30 Freq: Status: Active Protocol: Document 07/07/23 09:04 LRN (Rec: 07/07/23 09:50 LRN [id number]) Posture Evaluation Position Standing Head/C-Spine Posture Forward Head L-Spine Posture Increased Lordosis,Shifted Left Arm Posture (L) Internally Rotated,(R) Internally Rotated Pelvis Posture Anteriorly Tilted,(R) Iliac Crest Superior Comments Posture Comments Holds R leg fwd of L leg, dowagers hump, straightened upper back, Lumbar C-curve with apex on left. L foot is forward of R foot. PT-OP-K Range of Motion Start: 06/23/23 18:30 Freq: Status: Active Protocol: Document 07/07/23 09:04 LRN (Rec: 07/07/23 09:50 LRN [id number]) Lumbar Spine Range of Motion Lumbar Spine Active Degrees Testing Position Standing Flexion 70 Extension 10 Rotation Left 20 Rotation Right 10 Lateral Flexion Left 10 Lateral Flexion Right 5 Hip Goniometric Range of Motion Hip Right Passive Testing Position Supine Abduction 20 Internal Rotation 30 External Rotation 20 Left Passive Testing Position Supine Abduction 30 Internal Rotation 40 External Rotation 20 PT-OP-M Strength Start: 06/23/23 18:30 Freq: Status: Active Protocol: Document 07/07/23 09:04 LRN (Rec: 07/07/23 09:50 LRN [id number]) Trunk Strength Trunk Manual Muscle Testing Core Stabilization Pt core stability with LE MMT is 4/5 Hip Strength Hip Manual Muscle Testing Right Flexion (L2) 3 Fair Abduction 4 Good External Rotation 3+ Fair+ Comments Strength is 5/5 except as indicated above. Left Extension (S1) 4 Good External Rotation 3+ Fair+ Comments Strength is 5/5 except as indicated above. PT-OP-Q Treatments Start: 06/23/23 18:30 Freq: Status: Active Protocol: Document 07/07/23 09:04 LRN (Rec: 07/07/23 15:58 LRN [id number]) Self-Care/Home Management Treatment Education Other Education Discussed results of evaluation, goals, and plan of care (POC). Pt agreeable to goals and POC. Issued, discussed, & reviewed Bladder Diary for pt to complete over the next 7 days. Explained how to fill out all areas of bladder diary and counting of urination times. Activities Self-Care/Home Management Activities Issued handout bladder diary handout. PT-OP-T Assessment and Plan Start: 06/23/23 18:30 Freq: Status: Active Protocol: Document 07/07/23 09:04 LRN (Rec: 07/07/23 09:50 LRN [id number]) Physical Therapy Assessment Rehab Potential Rehabilitation Potential Good Evaluation Complexity Number of Personal Factors/Comorbidities 1-2 Number of Body Systems Impaired 4 or More Clinical Presentation at Evaluation Evolving Impairments Impairments ROM,Soft Tissue Mobility, Strength,Tone,Transfers Goals Two Impairment Urnary leakage with cough, sneeze, exercise. Short Term Goal (STG) Pt will be educated in Aggrevator PF contractions followed by PF relaxation STG Duration 2 wks-07/21/23 [facility] Goal (LTG) No urinary leakage with coughing, sneezing, gardening. LTG Duration 12 wks-09/29/23 One Impairment Lacks appropriate HEP. Short Term Goal (STG) Learn what to do to be confident she will not leak. STG Duration 10 wks-09/08/23 Legal Operations Manager Goal (LTG) HEP. LTG Duration 12 wks-09/29/23 Assessment Summary Assessment Pt is a 78 yo female who presents with stress urinary incontinence due to a tight PF . Her condition is complicated by thin/fragile PF tissues, small vaginal opening making assessment of PF strength and ms tone impossible at this time, and difference in surgical hip corrections of different approaches (L post KELLY 2011 & R anter KELLY 2021). She is also limited in hip (ER>IR R>L AB), and trunk mobility (R SB , R rot). she has thin and fragile tight PF tissues, therefore not able to stretch enough to perform a PF MMT. Pt would greatly benefit from an estrogen cream or tablet to improve PF health. The pt will benefit from skilled physical therapy to work towards achieving the above stated goals. Pt is leaving in 4 wks for 4 wks; therefore extension of PT rehab program is needed. Physical Therapy Plan Frequency and Duration Frequency of Treatment 1x/Week Duration of treatment (weeks) 12 Plan of Care Start Date 07/07/23 Plan of Care End Date 09/29/23 Therapeutic Interventions Therapeutic Interventions Home Exercise Program,Manual Therapy,Neuromuscular Re- education,Self-Care/Home Management,Soft Tissue Mobilization,Therapeutic Activities,Therapeutic Exercises Modalities Cold Pack/Ice Massage,Hot Packs Next Visit Focus/Plan Next Note Type Treatment Note Next Visit Plan 4 wks PT f/b 4 wk break, then resume PT. Next: Assess bladder diary and bowel involvement with recommendations as appropriate . Start PF stretch via hip/ trunk stretching and breathing (Deep breath and breath with stretch of PF on inhale). HEP: hip/?PF stretches. Manual therapy for PF stretching around the PF clock when tissue health improved ( wand), awareness training to relax PF, and relaxation techniques. Hip stretch (Ken ER, R>L IR/AB), trunk stretch (R rot/R SB) & core strengthening (rotation, TA). Education in proper methods for transfer with coordination of breathing and PF relaxation.
--- NOTE | 2023-07-07 16:38 | PT.OPPOC ---
Physical, Occupational & Speech Therapy At [facility] Current Diagnoses Stiffness of unspecified hip, not elsewhere classified (07/07/23) Stress incontinence (female) (male) (07/07/23) Unspecified urinary incontinence (07/07/23) Visit Care Team Role Provider Type Brunilda Garzon MD Attending Provider Physician Family Provider Primary Care Provider Referring Provider Specialty: Family Practice Obstetrics Address: [address] [place] [address], [id number] Email: [email or web address] Plan Of Care PT-OP-T Assessment and Plan Start: 06/23/23 18:30 Freq: Status: Active Protocol: Document 07/07/23 09:04 LRN (Rec: 07/07/23 09:50 LRN [id number]) Physical Therapy Assessment Rehab Potential Rehabilitation Potential Good Evaluation Complexity Number of Personal Factors/Comorbidities 1-2 Number of Body Systems Impaired 4 or More Clinical Presentation at Evaluation Evolving Impairments Impairments ROM,Soft Tissue Mobility, Strength,Tone,Transfers Goals Two Impairment Urnary leakage with cough, sneeze, exercise. Short Term Goal (STG) Pt will be educated in Aggrevator PF contractions followed by PF relaxation STG Duration 2 wks-07/21/23 [facility] Goal (LTG) No urinary leakage with coughing, sneezing, gardening. LTG Duration 12 wks-09/29/23 One Impairment Lacks appropriate HEP. Short Term Goal (STG) Learn what to do to be confident she will not leak. STG Duration 10 wks-09/08/23 [facility] Goal (LTG) HEP. LTG Duration 12 wks-09/29/23 Assessment Summary Assessment Pt is a 78 yo female who presents with stress urinary incontinence due to a tight PF . Her condition is complicated by thin/fragile PF tissues, small vaginal opening making assessment of PF strength and ms tone impossible at this time, and difference in surgical hip corrections of different approaches (L post KELLY 2011 & R anter KELLY 2021). She is also limited in hip (ER>IR R>L AB), and trunk mobility (R SB , R rot). she has thin and fragile tight PF tissues, therefore not able to stretch enough to perform a PF MMT. Pt would greatly benefit from an estrogen cream or tablet to improve PF health. The pt will benefit from skilled physical therapy to work towards achieving the above stated goals. Pt is leaving in 4 wks for 4 wks; therefore extension of PT rehab program is needed. Physical Therapy Plan Frequency and Duration Frequency of Treatment 1x/Week Duration of treatment (weeks) 12 Plan of Care Start Date 07/07/23 Plan of Care End Date 09/29/23 Therapeutic Interventions Therapeutic Interventions Home Exercise Program,Manual Therapy,Neuromuscular Re- education,Self-Care/Home Management,Soft Tissue Mobilization,Therapeutic Activities,Therapeutic Exercises Modalities Cold Pack/Ice Massage,Hot Packs Next Visit Focus/Plan Next Note Type Treatment Note Next Visit Plan 4 wks PT f/b 4 wk break, then resume PT. Next: Assess bladder diary and bowel involvement with recommendations as appropriate . Start PF stretch via hip/ trunk stretching and breathing (Deep breath and breath with stretch of PF on inhale). HEP: hip/?PF stretches. Manual therapy for PF stretching around the PF clock when tissue health improved ( wand), awareness training to relax PF, and relaxation techniques. Hip stretch (Ken ER, R>L IR/AB), trunk stretch (R rot/R SB) & core strengthening (rotation, TA). Education in proper methods for transfer with coordination of breathing and PF relaxation. Plan of Care Dates Plan of Care Start Date 07/07/23 Plan of Care End Date 09/29/23 Electronically Signed by: Catherine Osbron, PT 07/07/23 9272 If you are in agreement with this Plan of Care, please return a signed and dated copy. I have reviewed this Plan of Care and certify that the skilled therapy services above are required to meet the patient?s needs. Physician Signature Date Printed Name and Credentials Clinical Instructor Signature Printed Name and Credentials
--- NOTE | 2023-07-14 14:24 | PT.OTN ---
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 PT-OP-B Current Condition Start: 06/23/23 18:30 Freq: Status: Active Protocol: Document 07/07/23 09:04 LRN (Rec: 07/07/23 09:50 LRN [id number]) Current Condition History of Current Condition Onset Date 1 yr ago Current Complaints Urinary incontinence History of Current Condition Since turning age 65, pt has had urinary leakage with coughing, sneezing, lifting, getting up from gardening. A year ago she started to have to wear pantiliners. Self treated with Kegel ex's. BM daily or every other day and eats prunes if no BM for a day . Pt denies having pregnancies. Prior Treatments and Tests None Future Testing and Treatments Planned None Treatment Goals Patient/Caregiver Goals Pt goals: Learn what to do and not leak with coughing, sneezing and gardening activities. HEP. Personal Factors Other Personal Factors That May Effect Lives alone. Hip surgery L Therapy/Recovery posterior KELLY-2009, R anterior KELLY-2021. Heart arrhthmia. PT-OP-C Subjective Start: 06/23/23 18:30 Freq: Status: Active Protocol: Document 07/14/23 09:01 LRN (Rec: 07/14/23 09:46 LRN [id number]) OP-PT Subjective Patient Comments Patient Comments States since getting referral, has not leaked as much or as often. States doing bladder diary, she is going more to bathroom more often and less leakage. States she does not want to take creams for her vagina because she doesn't care about it. Would like to do other things if possible to help her situation. PT-OP-I Pelvic Floor Start: 06/23/23 18:30 Freq: Status: Active Protocol: Document 07/07/23 09:04 LRN (Rec: 07/07/23 09:50 LRN [id number]) Pelvic Floor Assessment Urine Leakage Size Small Leakage Cause Cough,Exercise,Lifting,Sneeze Other Leakage Causes Exercise is walking in the yard and gardening. Leaks Per Day 2 Voiding Frequency 3-4 hrs Nocturia 1 Pads Used In 24 Hours 1 Urine Pad Type Panty Liner Bowel Bowel Movement Frequency daily or every other day Pelvic Clock Pelvic Clock 12-3 Tenderness,Tightness Pelvic Clock 3-6 Tenderness,Tightness Pelvic Clock 6-9 Tenderness,Tightness Pelvic Clock 9-12 Tenderness,Tightness Pelvic Clock Other Very small vaginal opening. Tissues dry and fragile. Prolapse Prolapse Comments Not able to assess due to PF discomfort with insertion of index finger up to first knuckle. Perineal Descent Resting Absent Bearing Absent Comments Pelvic Floor Comments Not able to assess PF strength or prolapse due to pain with insertion of index finger up to first knuckle. PT-OP-J Posture/Palpation/Skin Start: 06/23/23 18:30 Freq: Status: Active Protocol: Document 07/07/23 09:04 LRN (Rec: 07/07/23 09:50 LRN [id number]) Posture Evaluation Position Standing Head/C-Spine Posture Forward Head L-Spine Posture Increased Lordosis,Shifted Left Arm Posture (L) Internally Rotated,(R) Internally Rotated Pelvis Posture Anteriorly Tilted,(R) Iliac Crest Superior Comments Posture Comments Holds R leg fwd of L leg, dowagers hump, straightened upper back, Lumbar C-curve with apex on left. L foot is forward of R foot. PT-OP-K Range of Motion Start: 06/23/23 18:30 Freq: Status: Active Protocol: Document 07/07/23 09:04 LRN (Rec: 07/07/23 09:50 LRN [id number]) Lumbar Spine Range of Motion Lumbar Spine Active Degrees Testing Position Standing Flexion 70 Extension 10 Rotation Left 20 Rotation Right 10 Lateral Flexion Left 10 Lateral Flexion Right 5 Hip Goniometric Range of Motion Hip Right Passive Testing Position Supine Abduction 20 Internal Rotation 30 External Rotation 20 Left Passive Testing Position Supine Abduction 30 Internal Rotation 40 External Rotation 20 PT-OP-M Strength Start: 06/23/23 18:30 Freq: Status: Active Protocol: Document 07/07/23 09:04 LRN (Rec: 07/07/23 09:50 LRN [id number]) Trunk Strength Trunk Manual Muscle Testing Core Stabilization Pt core stability with LE MMT is 4/5 Hip Strength Hip Manual Muscle Testing Right Flexion (L2) 3 Fair Abduction 4 Good External Rotation 3+ Fair+ Comments Strength is 5/5 except as indicated above. Left Extension (S1) 4 Good External Rotation 3+ Fair+ Comments Strength is 5/5 except as indicated above. PT-OP-Q Treatments Start: 06/23/23 18:30 Freq: Status: Active Protocol: Document 07/14/23 09:01 LRN (Rec: 07/14/23 09:46 LRN [id number]) Therapeutic Exercises Supine Exercises Happy Baby Pose Supine Exercise Name Happy Baby Pose Reps/Minutes 4' Sitting Exercises SL hip AD stretch Sitting Exercise Name SL hip AD stretch Side bilateral Reps/Minutes 8' Self-Care/Home Management Treatment Education Patient Education Home Exercise Program Other Education Reviewed al length Bladder dairy and discussed fluid intake (AM/PM), bladder capacity, hydration level norm , times between voids & nighttime voiding (ok x 1). Discussed bladder irritants with review of handout. Activities Self-Care/Home Management Activities Issued handout for Bladder Irritants. Issued & reviewed HEP: Happy Baby Pose & SL on plinth hip AD stretch. Issued HEP: Kegel only for aggrevators. PT-OP-T Assessment and Plan Start: 06/23/23 18:30 Freq: Status: Active Protocol: Document 07/14/23 09:01 LRN (Rec: 07/14/23 09:46 LRN [id number]) Physical Therapy Assessment Goals Two Impairment Urnary leakage with cough, sneeze, exercise. Short Term Goal (STG) Pt will be educated in Aggrevator PF contractions followed by PF relaxation. 07/14/23: Educated pt in Aggrevator PF contractions. STG Duration 2 wks-07/21/23 progressed (need relaxation after Kegel) Intermediate Project Manager Goal (LTG) No urinary leakage with coughing, sneezing, gardening. LTG Duration 12 wks-09/29/23 One Impairment Lacks appropriate HEP. Short Term Goal (STG) Learn what to do to be confident she will not leak. STG Duration 10 wks-09/08/23 Intermediate Project Manager Goal (LTG) HEP 07/14/23: HEP: Happy Baby Pose & SL on plinth hip AD stretch. LTG Duration 12 wks-09/29/23 progressed 07/14/23 Assessment Summary Assessment 78 yo female who presents with stress urinary incontinence due to a tight PF. She prefers not getting meds to improve her PF health and would rather do ex's vs manual stretching of PF. Good understanding of stretches, but pt has very tight/limited hip mobility. Bladder diary review show fair amount of fluid intake, ~60 oz vs 90 oz (1/2 her body wgt in oz's). Voiding frequency is 4-6 hrs. Urinary leakage with sneeze, cough; therefore CAITY due to tight PF ms. No apparent urge incontinence. Physical Therapy Plan Frequency and Duration Frequency of Treatment 1x/Week Duration of treatment (weeks) 12 Plan of Care Start Date 07/07/23 Plan of Care End Date 09/29/23 Next Visit Focus/Plan Next Note Type Treatment Note Next Visit Plan 4 wks PT f/b 4 wk break, then resume PT. Next: Assess bladder diary and bowel involvement with recommendations as appropriate . Start PF stretch via hip/ trunk stretching and breathing (Deep breath and breath with stretch of PF on inhale). HEP: hip/?PF stretches. Manual therapy for PF stretching around the PF clock when tissue health improved ( wand), awareness training to relax PF, and relaxation techniques. Hip stretch (Ken ER, R>L IR/AB), trunk stretch (R rot/R SB) & core strengthening (rotation, TA). Education in proper methods for transfer with coordination of breathing and PF relaxation.
--- NOTE | 2023-07-17 13:55 | PT.OTN ---
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 PT-OP-B Current Condition Start: 06/23/23 18:30 Freq: Status: Active Protocol: Document 07/07/23 09:04 LRN (Rec: 07/07/23 09:50 LRN [id number]) Current Condition History of Current Condition Onset Date 1 yr ago Current Complaints Urinary incontinence History of Current Condition Since turning age 65, pt has had urinary leakage with coughing, sneezing, lifting, getting up from gardening. A year ago she started to have to wear pantiliners. Self treated with Kegel ex's. BM daily or every other day and eats prunes if no BM for a day . Pt denies having pregnancies. Prior Treatments and Tests None Future Testing and Treatments Planned None Treatment Goals Patient/Caregiver Goals Pt goals: Learn what to do and not leak with coughing, sneezing and gardening activities. HEP. Personal Factors Other Personal Factors That May Effect Lives alone. Hip surgery L Therapy/Recovery posterior KELLY-2009, R anterior KELLY-2021. Heart arrhthmia. PT-OP-C Subjective Start: 06/23/23 18:30 Freq: Status: Active Protocol: Document 07/17/23 13:00 LRN (Rec: 07/17/23 13:47 LRN [id number]) OP-PT Subjective Patient Comments Patient Comments Has't spent much time doing ex 's over the weekend. Kept 4 hr guideline with voiding; therefore no leakage with cough. Did kayaking & fly fishing but no leakage. PT-OP-I Pelvic Floor Start: 06/23/23 18:30 Freq: Status: Active Protocol: Document 07/07/23 09:04 LRN (Rec: 07/07/23 09:50 LRN [id number]) Pelvic Floor Assessment Urine Leakage Size Small Leakage Cause Cough,Exercise,Lifting,Sneeze Other Leakage Causes Exercise is walking in the yard and gardening. Leaks Per Day 2 Voiding Frequency 3-4 hrs Nocturia 1 Pads Used In 24 Hours 1 Urine Pad Type Panty Liner Bowel Bowel Movement Frequency daily or every other day Pelvic Clock Pelvic Clock 12-3 Tenderness,Tightness Pelvic Clock 3-6 Tenderness,Tightness Pelvic Clock 6-9 Tenderness,Tightness Pelvic Clock 9-12 Tenderness,Tightness Pelvic Clock Other Very small vaginal opening. Tissues dry and fragile. Prolapse Prolapse Comments Not able to assess due to PF discomfort with insertion of index finger up to first knuckle. Perineal Descent Resting Absent Bearing Absent Comments Pelvic Floor Comments Not able to assess PF strength or prolapse due to pain with insertion of index finger up to first knuckle. PT-OP-J Posture/Palpation/Skin Start: 06/23/23 18:30 Freq: Status: Active Protocol: Document 07/07/23 09:04 LRN (Rec: 07/07/23 09:50 LRN [id number]) Posture Evaluation Position Standing Head/C-Spine Posture Forward Head L-Spine Posture Increased Lordosis,Shifted Left Arm Posture (L) Internally Rotated,(R) Internally Rotated Pelvis Posture Anteriorly Tilted,(R) Iliac Crest Superior Comments Posture Comments Holds R leg fwd of L leg, dowagers hump, straightened upper back, Lumbar C-curve with apex on left. L foot is forward of R foot. PT-OP-K Range of Motion Start: 06/23/23 18:30 Freq: Status: Active Protocol: Document 07/07/23 09:04 LRN (Rec: 07/07/23 09:50 LRN [id number]) Lumbar Spine Range of Motion Lumbar Spine Active Degrees Testing Position Standing Flexion 70 Extension 10 Rotation Left 20 Rotation Right 10 Lateral Flexion Left 10 Lateral Flexion Right 5 Hip Goniometric Range of Motion Hip Right Passive Testing Position Supine Abduction 20 Internal Rotation 30 External Rotation 20 Left Passive Testing Position Supine Abduction 30 Internal Rotation 40 External Rotation 20 PT-OP-M Strength Start: 06/23/23 18:30 Freq: Status: Active Protocol: Document 07/07/23 09:04 LRN (Rec: 07/07/23 09:50 LRN [id number]) Trunk Strength Trunk Manual Muscle Testing Core Stabilization Pt core stability with LE MMT is 4/5 Hip Strength Hip Manual Muscle Testing Right Flexion (L2) 3 Fair Abduction 4 Good External Rotation 3+ Fair+ Comments Strength is 5/5 except as indicated above. Left Extension (S1) 4 Good External Rotation 3+ Fair+ Comments Strength is 5/5 except as indicated above. PT-OP-Q Treatments Start: 06/23/23 18:30 Freq: Status: Active Protocol: Document 07/17/23 13:00 LRN (Rec: 07/17/23 13:47 LRN [id number]) Therapeutic Exercises Supine Exercises Ken BKFO stretch Supine Exercise Name Ken BKFO stretch Side bilateral Reps/Minutes 6' Happy Baby Pose Supine Exercise Name Happy Baby Pose Reps/Minutes 4' Comments Cuing for hand placement. Sitting Exercises Diaphragmatic breathing Sitting Exercise Name Diaphragmatic Breathing SL hip AD stretch Sitting Exercise Name SL hip AD stretch Side bilateral Reps/Minutes 6' Self-Care/Home Management Treatment Education Patient Education Home Exercise Program Other Education Discussed ex that she can do in the pool. Reviewed and discussed Genital Vulvar Care and Genital Hygiene Care for women. Activities Self-Care/Home Management Activities Issued HEP: Stretch to hip AD 's & Piriformis. Issued & reviewed self care handout for vulvar care. PT-OP-T Assessment and Plan Start: 06/23/23 18:30 Freq: Status: Active Protocol: Document 07/17/23 13:00 LRN (Rec: 07/17/23 13:47 LRN [id number]) Physical Therapy Assessment Goals Two Impairment Urnary leakage with cough, sneeze, exercise. Short Term Goal (STG) Pt will be educated in Aggrevator PF contractions followed by PF relaxation. 07/14/23: Educated pt in Aggrevator PF contractions. 07/17/23: Pt educated in diaphragmatic breathing. STG Duration 2 wks-07/21/23 progressed (need relaxation after Kegel) Derrickman Helper Goal (LTG) No urinary leakage with coughing, sneezing, gardening. LTG Duration 12 wks-09/29/23 One Impairment Lacks appropriate HEP. Short Term Goal (STG) Learn what to do to be confident she will not leak. STG Duration 10 wks-09/08/23 Mcfp Goal (LTG) HEP 07/14/23: HEP: Happy Baby Pose & SL on plinth hip AD stretch & diaphragmatic breathing. 07/17/23: HEP: Hip Piriformis and ken BKFO stretch, Diaphragmatic breathing. LTG Duration 12 wks-09/29/23 progressed 07/17/23 Assessment Summary Assessment 78 yo female who presents with stress urinary incontinence due to a tight PF. Fairly good recall of HEP. Cuing needed for happy baby pose. Poor diaphragmatic breathing method, pt became light headed afte a few breaths. Further review and possibly training needed. Bladder diary submitted not in system yet. Physical Therapy Plan Frequency and Duration Frequency of Treatment 1x/Week Duration of treatment (weeks) 12 Plan of Care Start Date 07/07/23 Plan of Care End Date 09/29/23 Therapeutic Interventions Modalities Cold Pack/Ice Massage Next Visit Focus/Plan Next Note Type Treatment Note Next Visit Plan 3 wks PT f/b 4 wk break, then resume PT. Next: Assess bladder diary and bowel involvement with recommendations as appropriate . Review diaphragmatic breathing. Start Hip AB stretch and PF stretch via trunk stretching and breathing (breath with stretch of PF on inhale). HEP: hip/?PF stretches. Manual therapy for PF stretching around the PF clock when tissue health improved ( wand), awareness training to relax PF, and relaxation techniques. Trunk stretch (R rot/R SB) & core strengthening (rotation, TA). Education in proper methods for transfer with coordination of breathing and PF relaxation.
--- NOTE | 2023-07-28 16:56 | PT.OTN ---
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 PT-OP-B Current Condition Start: 06/23/23 18:30 Freq: Status: Active Protocol: Document 07/07/23 09:04 LRN (Rec: 07/07/23 09:50 LRN [id number]) Current Condition History of Current Condition Onset Date 1 yr ago Current Complaints Urinary incontinence History of Current Condition Since turning age 65, pt has had urinary leakage with coughing, sneezing, lifting, getting up from gardening. A year ago she started to have to wear pantiliners. Self treated with Kegel ex's. BM daily or every other day and eats prunes if no BM for a day . Pt denies having pregnancies. Prior Treatments and Tests None Future Testing and Treatments Planned None Treatment Goals Patient/Caregiver Goals Pt goals: Learn what to do and not leak with coughing, sneezing and gardening activities. HEP. Personal Factors Other Personal Factors That May Effect Lives alone. Hip surgery L Therapy/Recovery posterior KELLY-2009, R anterior KELLY-2021. Heart arrhthmia. PT-OP-C Subjective Start: 06/23/23 18:30 Freq: Status: Active Protocol: Document 07/28/23 09:08 LRN (Rec: 07/28/23 10:00 LRN [id number]) OP-PT Subjective Patient Comments Patient Comments No changes. Doing ex's and have been on the road. Going on trip for 4 wks on the . Patient Questionnaires Pelvic Pain and Urgency/Frequency Patient Symptom Scale Pelvic Pain Score 2 PT-OP-I Pelvic Floor Start: 06/23/23 18:30 Freq: Status: Active Protocol: Document 07/07/23 09:04 LRN (Rec: 07/07/23 09:50 LRN [id number]) Pelvic Floor Assessment Urine Leakage Size Small Leakage Cause Cough,Exercise,Lifting,Sneeze Other Leakage Causes Exercise is walking in the yard and gardening. Leaks Per Day 2 Voiding Frequency 3-4 hrs Nocturia 1 Pads Used In 24 Hours 1 Urine Pad Type Panty Liner Bowel Bowel Movement Frequency daily or every other day Pelvic Clock Pelvic Clock 12-3 Tenderness,Tightness Pelvic Clock 3-6 Tenderness,Tightness Pelvic Clock 6-9 Tenderness,Tightness Pelvic Clock 9-12 Tenderness,Tightness Pelvic Clock Other Very small vaginal opening. Tissues dry and fragile. Prolapse Prolapse Comments Not able to assess due to PF discomfort with insertion of index finger up to first knuckle. Perineal Descent Resting Absent Bearing Absent Comments Pelvic Floor Comments Not able to assess PF strength or prolapse due to pain with insertion of index finger up to first knuckle. PT-OP-J Posture/Palpation/Skin Start: 06/23/23 18:30 Freq: Status: Active Protocol: Document 07/07/23 09:04 LRN (Rec: 07/07/23 09:50 LRN [id number]) Posture Evaluation Position Standing Head/C-Spine Posture Forward Head L-Spine Posture Increased Lordosis,Shifted Left Arm Posture (L) Internally Rotated,(R) Internally Rotated Pelvis Posture Anteriorly Tilted,(R) Iliac Crest Superior Comments Posture Comments Holds R leg fwd of L leg, dowagers hump, straightened upper back, Lumbar C-curve with apex on left. L foot is forward of R foot. PT-OP-K Range of Motion Start: 06/23/23 18:30 Freq: Status: Active Protocol: Document 07/07/23 09:04 LRN (Rec: 07/07/23 09:50 LRN [id number]) Lumbar Spine Range of Motion Lumbar Spine Active Degrees Testing Position Standing Flexion 70 Extension 10 Rotation Left 20 Rotation Right 10 Lateral Flexion Left 10 Lateral Flexion Right 5 Hip Goniometric Range of Motion Hip Right Passive Testing Position Supine Abduction 20 Internal Rotation 30 External Rotation 20 Left Passive Testing Position Supine Abduction 30 Internal Rotation 40 External Rotation 20 PT-OP-M Strength Start: 06/23/23 18:30 Freq: Status: Active Protocol: Document 07/07/23 09:04 LRN (Rec: 07/07/23 09:50 LRN [id number]) Trunk Strength Trunk Manual Muscle Testing Core Stabilization Pt core stability with LE MMT is 4/5 Hip Strength Hip Manual Muscle Testing Right Flexion (L2) 3 Fair Abduction 4 Good External Rotation 3+ Fair+ Comments Strength is 5/5 except as indicated above. Left Extension (S1) 4 Good External Rotation 3+ Fair+ Comments Strength is 5/5 except as indicated above. PT-OP-Q Treatments Start: 06/23/23 18:30 Freq: Status: Active Protocol: Document 07/28/23 09:08 LRN (Rec: 07/28/23 10:00 LRN [id number]) Therapeutic Exercises Supine Exercises LTR trunk rot stretch Supine Exercise Name 2x R, 1x L Side bilateral Reps/Minutes 5x each Comments Extra time to determine max tolerated stretch. Happy Baby Pose Supine Exercise Name Happy Baby Pose-inhale w/ reverse Kegel. Reps/Minutes 4' Comments Cuing for hand placement. Sitting Exercises Trunk Rot stretch Sitting Exercise Name 2x R, 1x L Side bilateral Reps/Minutes 5x Comments Extra time to determine max tolerated stretch. Other Exercises Long sit hip AD stretch Other Exercise Name Long sit for hip AD stretch w/ PF stretch in inbreath and relax on exhale. Reps/Minutes 10' Comments Extra time to coordinate breathing for PF stretch. Child's Pose PF stretch Other Exercise Name Laying over bolster, pillow on bolster & pillows behind knees. Reps/Minutes 6' Comments Extra time to coordinate breathing for PF stretch. Neuro Re-Education Treatment Coordination Activities Transfers with breath Details Coordinating transfer w/breath . Reps/Duration 8' Self-Care/Home Management Treatment Education Other Education Discussed with pt, PF health, including benefit of estrogen cream prescribed by MD. Discussed pt goals, and plan of care (POC) with pt planning on being gone for 4 wks, and her continuation of care. Pt agreeable to extending POC for further therapy after return from trip. Activities Self-Care/Home Management Activities Issued & reviewed HEP: supine & sitting trunk rot stretch, and standing SB stretch. PT-OP-T Assessment and Plan Start: 06/23/23 18:30 Freq: Status: Active Protocol: Document 07/28/23 09:08 LRN (Rec: 07/28/23 10:00 LRChicho [id number]) Physical Therapy Assessment Rehab Potential Rehabilitation Potential Good Evaluation Complexity Number of Personal Factors/Comorbidities 1-2 Number of Body Systems Impaired 4 or More Clinical Presentation at Evaluation Evolving Impairments Impairments ROM,Soft Tissue Mobility, Strength,Tone,Transfers Goals Two Impairment Urnary leakage with cough, sneeze, exercise. Short Term Goal (STG) Pt will be educated in Aggrevator PF contractions followed by PF relaxation. 07/14/23: Educated pt in Aggrevator PF contractions. 07/17/23: Pt educated in diaphragmatic breathing. 07/28/23: Educated pt in hip stretches using inbreath for PF relaxation and exhale w/o contraction. STG Duration 10 wks-10/06/23 progressed (inconsistent w/ aggrevator&relaxation) Mcfp Goal (LTG) No urinary leakage with coughing, sneezing, gardening. LTG Duration 12 wks-10/20/23 One Impairment Lacks appropriate HEP. Short Term Goal (STG) Learn what to do to be confident she will not leak. STG Duration 10 wks-10/06/23 Mcfp Goal (LTG) HEP of PF stretches, Hip stretch (Ken ER, R>L IR/AB), trunk stretch (R rot/R SB), core strengthening (rotation, TA), and core pressure management. 07/14/23: HEP: Happy Baby Pose & SL on plinth hip AD stretch & diaphragmatic breathing. 07/17/23: HEP: Hip Piriformis and ken BKFO stretch, Diaphragmatic breathing. LTG Duration 12 wks-10/20/23 progressed 07/17/23 Assessment Summary Assessment 78 yo female who presents with stress urinary incontinence due to a tight PF. Very tight in inner thighs and hamstrings with PF stretching. I have not been able to manually stretch her PF due to poor PF tissue health. The pt has been started on estrogen cream and when her return in 4 wks I am hopeful that she will be able to tolerate PF stretching. The pt will benefit from ongoing PT to achieve the above stated goals, as she has only been seen for 3 treatment visits in the past 4 wks. Her PUF score is worse by 1 point only because today the pt made notation on intercourse although the pt has mentioned previously that she is not concerned of this and did not address it initial in the PUF scoring. Physical Therapy Plan Frequency and Duration Frequency of Treatment 1x/Week Duration of treatment (weeks) 12 Plan of Care Start Date 07/28/23 Plan of Care End Date 10/20/23 Therapeutic Interventions Therapeutic Interventions Home Exercise Program,Manual Therapy,Neuromuscular Re- education,Self-Care/Home Management,Soft Tissue Mobilization,Therapeutic Activities,Therapeutic Exercises Modalities Cold Pack/Ice Massage Next Visit Focus/Plan Next Note Type Treatment Note Next Visit Plan Next: Reassess progress towards goals when pt returns after 4 wks. Review diaphragmatic breathing and issued trunk stretches (Trunk stretch (R rot/R SB), adding PF stretch w/breathe. Start Hip AB stretch and breathing ( breath with stretch of PF on inhale). HEP: hip/?PF stretches if pelvic tissues healthy. Manual therapy for PF stretching around the PF clock when tissue health improved ( wand), awareness training to relax PF, and relaxation techniques. HEP: Core strengthening ( rotation, TA). Education in proper methods for transfer with coordination of breathing and PF relaxation.
--- NOTE | 2023-07-28 16:56 | PT.OPPOC ---
Physical, Occupational & Speech Therapy At [facility] Current Diagnoses Stiffness of unspecified hip, not elsewhere classified (07/28/23) Stress incontinence (female) (male) (07/28/23) Unspecified urinary incontinence (07/28/23) Visit Care Team Role Provider Type Brunilda Garzon MD Attending Provider Physician Family Provider Primary Care Provider Referring Provider Specialty: Family Practice Obstetrics Address: [address] [place] [address], [id number] Email: [email or web address] Plan Of Care PT-OP-T Assessment and Plan Start: 06/23/23 18:30 Freq: Status: Active Protocol: Document 07/28/23 09:08 LRN (Rec: 07/28/23 10:00 LRN [id number]) Physical Therapy Assessment Rehab Potential Rehabilitation Potential Good Evaluation Complexity Number of Personal Factors/Comorbidities 1-2 Number of Body Systems Impaired 4 or More Clinical Presentation at Evaluation Evolving Impairments Impairments ROM,Soft Tissue Mobility, Strength,Tone,Transfers Goals Two Impairment Urnary leakage with cough, sneeze, exercise. Short Term Goal (STG) Pt will be educated in Aggrevator PF contractions followed by PF relaxation. 07/14/23: Educated pt in Aggrevator PF contractions. 07/17/23: Pt educated in diaphragmatic breathing. 07/28/23: Educated pt in hip stretches using inbreath for PF relaxation and exhale w/o contraction. STG Duration 10 wks-10/06/23 progressed (inconsistent w/ aggrevator&relaxation) Compliance Coordinator Goal (LTG) No urinary leakage with coughing, sneezing, gardening. LTG Duration 12 wks-10/20/23 One Impairment Lacks appropriate HEP. Short Term Goal (STG) Learn what to do to be confident she will not leak. STG Duration 10 wks-10/06/23 Compliance Coordinator Goal (LTG) HEP of PF stretches, Hip stretch (Aba ER, R>L IR/AB), trunk stretch (R rot/R SB), core strengthening (rotation, TA), and core pressure management. 07/14/23: HEP: Happy Baby Pose & SL on plinth hip AD stretch & diaphragmatic breathing. 07/17/23: HEP: Hip Piriformis and aba BKFO stretch, Diaphragmatic breathing. LTG Duration 12 wks-10/20/23 progressed 07/17/23 Assessment Summary Assessment 78 yo female who presents with stress urinary incontinence due to a tight PF. Very tight in inner thighs and hamstrings with PF stretching. I have not been able to manually stretch her PF due to poor PF tissue health. The pt has been started on estrogen cream and when her return in 4 wks I am hopeful that she will be able to tolerate PF stretching. The pt will benefit from ongoing PT to achieve the above stated goals, as she has only been seen for 3 treatment visits in the past 4 wks. Her PUF score is worse by 1 point only because today the pt made notation on intercourse although the pt has mentioned previously that she is not concerned of this and did not address it initial in the PUF scoring. Physical Therapy Plan Frequency and Duration Frequency of Treatment 1x/Week Duration of treatment (weeks) 12 Plan of Care Start Date 07/28/23 Plan of Care End Date 10/20/23 Therapeutic Interventions Therapeutic Interventions Home Exercise Program,Manual Therapy,Neuromuscular Re- education,Self-Care/Home Management,Soft Tissue Mobilization,Therapeutic Activities,Therapeutic Exercises Modalities Cold Pack/Ice Massage Next Visit Focus/Plan Next Note Type Treatment Note Next Visit Plan Next: Reassess progress towards goals when pt returns after 4 wks. Review diaphragmatic breathing and issued trunk stretches (Trunk stretch (R rot/R SB), adding PF stretch w/breathe. Start Hip AB stretch and breathing ( breath with stretch of PF on inhale). HEP: hip/?PF stretches if pelvic tissues healthy. Manual therapy for PF stretching around the PF clock when tissue health improved ( wand), awareness training to relax PF, and relaxation techniques. HEP: Core strengthening ( rotation, TA). Education in proper methods for transfer with coordination of breathing and PF relaxation. Plan of Care Dates Plan of Care Start Date 07/28/23 Plan of Care End Date 10/20/23 Electronically Signed by: Catherine Osborn, PT 07/28/23 [id number] If you are in agreement with this Plan of Care, please return a signed and dated copy. I have reviewed this Plan of Care and certify that the skilled therapy services above are required to meet the patient?s needs. Physician Signature Date Printed Name and Credentials Clinical Instructor Signature Printed Name and Credentials
== END 2024-03-15 10:47 | disposition home or self-care (01) ==
LOC: PHYS 09:00
PROVIDERS: Family Provider Student in an Organized Health Care Education/Training Program; PCP Student in an Organized Health Care Education/Training Program; Referring Provider Student in an Organized Health Care Education/Training Program; Visit Provider Student in an Organized Health Care Education/Training Program
DX: N39.3 Stress incontinence (female) (male) (principal); M25.659 Stiffness of unspecified hip, not elsewhere classified
CPT/HCPCS: 97110; 97112; 97162; 97535

== ENCOUNTER → 2023-11-30 07:55 | Outpatient (CLI) | payer MEDICARE, SELFPAY ==
[2020-12-29 12:14] VITALS: BMI 26.3
[2023-11-30 08:43] LABS: Add Manual Diff / Slide Review NO; Basophils Absolute Auto 0 /uL (0-100); Basophils Percent Auto 0.4 % (0-2); Eosinophils Absolute Auto 200 /uL (0-450); Hematocrit 33.7 % (36-46); Hemoglobin 11.7 g/dL (12.0-16.0); Lymphocytes Absolute Auto 2700 /uL (1100-4500); Lymphocytes Percent Auto 45.5 % (25-40); Mean Corpuscular HGB Conc 34.8 % (30-36); Mean Corpuscular Hemoglobin 31.5 PG (26-34); Mean Corpuscular Volume 90.4 fL (80-100); Monocytes Absolute Auto 700 /uL (0-900); Monocytes Percent Auto 12.1 % (3-14); Neutrophils Absolute Auto 2300 /uL (1500-7000); Platelet Count 234 X10^3/uL (150-400); Red Blood Cell Count 3.73 X10^6/uL (4.0-5.2); White Blood Cell Count 5.8 X10^3/uL (4.5-11.0)
[2023-11-30 09:09] LABS: BUN Creatinine Ratio 28.6 (6-22); Blood Urea Nitrogen 18 mg/dL (7-17); Calcium 9.5 mg/dL (8.4-10.2); Carbon Dioxide 27 mmol/L (22-32); Chloride 100 mmol/L (98-107); Cholesterol 154 mg/dL (140-199); Estimated Glomerular Filt Rate > 60 mL/min (>60); Glucose 95 mg/dL (80-110); HDL Cholesterol 71 mg/dL (40-60); HEMOLYSIS < 15 (0-50); LDL Cholesterol Calculated 71 mg/dL (<100); Potassium 4.3 mmol/L (3.4-5.1); Sodium 134 mmol/L (137-145); Triglycerides 62 mg/dL (35-150)
== END ==
PROVIDERS: Family Provider Student in an Organized Health Care Education/Training Program; PCP Student in an Organized Health Care Education/Training Program; Referring Provider Internal Medicine Cardiovascular Disease; Visit Provider Internal Medicine Cardiovascular Disease
DX: I10 Essential (primary) hypertension (principal); E78.5 Hyperlipidemia, unspecified
CPT/HCPCS: 36415; 80048; 80061; 85025

== ENCOUNTER → 2024-01-10 11:41 | Outpatient (CLI) | payer MEDICARE, SELFPAY ==
[2020-12-29 12:14] VITALS: BMI 26.3
[2024-01-10 13:04] LABS: HEMOLYSIS < 15 (0-50); Iron 95 ug/dL (37-170)
[2024-01-10 13:15] LABS: Percent Iron Saturation 30 % (15-50); Total Iron Binding Capacity 313 ug/dL (265-497); Transferrin 249 mg/dL (206-381)
[2024-01-10 13:44] LABS: Ferritin 37 ng/mL (11-264)
== END ==
PROVIDERS: Family Provider Student in an Organized Health Care Education/Training Program; PCP Student in an Organized Health Care Education/Training Program; Referring Provider Student in an Organized Health Care Education/Training Program; Visit Provider Student in an Organized Health Care Education/Training Program
DX: D64.9 Anemia, unspecified (principal)
CPT/HCPCS: 36415; 82728; 83540; 83550

== ENCOUNTER → 2024-05-22 06:46 | Outpatient (CLI) | payer MEDICARE, SELFPAY ==
[2020-12-29 12:14] VITALS: BMI 26.3
--- NOTE | 2024-05-22 06:47 | DI.ECHO.S_ITS ---
[facility]---------+ [facility] : : [id number] : [address] [address] : : [id number] : : Phone: [phone] Echocardiogram Report + + :Name: STEFANIE ROSENBERG V Study Date: 05/22/2024 Height: 68 in : :Hospital ReadingLocation: Weight: 180 lb : : Gender: Female BSA: 2.0 m2 : :: 1945 Age: 79 yrs BP: 133/70 mmHg: :Reason For Study: MURMUR : :Ordering Physician: BENNETT, : :MOJGAN Performed By: Joann Okeefe : :Referring: MOJGAN STONE : + + Interpretation Summary 1) Normal left ventricular thickness, size, wall motion, and systolic function (EF 60-65%). 2) Mildly enlarged right ventricle with normal function. 3) There is mild mitral regurgitation. 4) Compared to the Echo done 09/07/2021, no significant change. Procedure: A two-dimensional transthoracic echocardiogram with color flow and Doppler was performed. The study quality was technically adequate. Comparison is made with the echocardiogram of 09/07/2021. The patient was in sinus rhythm with heart rates between 61-73 bpm during the exam. Left Ventricle: The left ventricle is normal in size and wall thickness. The ejection fraction is estimated to be 60-65%. Left ventricular systolic function appears normal without focal wall motion abnormalities. Diastolic parameters suggest a relaxation abnormality of the left ventricle, consistent with probable normal filling pressures. Right Ventricle: The right ventricle is mildly dilated. The right ventricular systolic function is normal. Atria: The left atrium is moderately dilated. The right atrium is moderately dilated. There is no Doppler evidence for an interatrial shunt. Mitral Valve: The mitral valve leaflets appear mildly thickened, but open well. There is mild to moderate mitral annular calcification. The mitral valve mean gradient is 2.9 mmHg. There is mild mitral regurgitation. Aortic Valve: The aortic valve is trileaflet. The aortic valve opens well. There is no aortic valve stenosis. No aortic regurgitation is present. Tricuspid Valve: The tricuspid valve leaflets are thin and pliable. There is mild tricuspid regurgitation. The right ventricular systolic pressure is estimated to be at least 38 mmHg based on an estimated right atrial pressure of 8 mm Hg. Pulmonic Valve: The pulmonic valve leaflets are thin and pliable; valve motion is normal. There is mild pulmonic regurgitation. Great Vessels: The aortic root is normal size. The ascending aorta is at the upper limits of normal in size. The IVC is dilated (diameter is greater than 2.1 cm) yet it collapses greater than 50% with a sniff. This suggests a right atrial pressure of 8 mm Hg. Pericardium/ Pleura There is no pericardial effusion. There is no pleural effusion. MMode/2D Measurements & Calculations LVIDd: 4.3 cm LVOT diam: 2.0 cm LVIDs: 2.6 cm Ao root diam: 3.0 cm FS: 38.6 % asc Aorta Diam: 3.7 cm EPSS: 0.40 cm Ao Arch Diam (Prox Trans): 3.1 cm IVSd: 1.0 cm LVPWd: 0.88 cm LV tuttle. diameter/BSA (cm/m^2): 2.2 LV sys. diameter/BSA (cm/m^2): 1.3 LA A2 area: 23.5 cm2 RA long axis: 5.2 cm LA A4 area: 21.8 cm2 RA area: 20.2 cm2 LA length (vol): 6.0 cm RA vol: 67.3 ml LA vol: 72.7 ml RA : 34.5 ml/m2 LA vol index: 37.2 ml/m2 IVC diam: 2.1 cm RVD1 (basal): 4.6 cm RVD2 (mid): 4.0 cm TAPSE: 2.8 cm Doppler Measurements & Calculations Ao V2 max: 143.3 cm/sec LVOT Max Albert: 114.4 cm/sec Ao V2 mean: 106.5 cm/sec LV V1 max P.2 mmHg Ao max P.2 mmHg LV V1 VTI: 26.5 cm Ao mean P.9 mmHg HAL(I,D): 2.4 cm2 Ao V2 VTI: 34.0 cm HAL(V,D): 2.5 cm2 sev ratio: 0.78 HAL indexed to BSA (cm^2/m^2): 1.2 MV E max albert: 93.1 cm/sec TR max albert: 274.6 cm/sec MV A max albert: 142.5 cm/sec TR max P.2 mmHg MV E/A: 0.65 PA V2 max: 113.1 cm/sec Med Peak E' Albert: 9.2 cm/sec PA V2 mean: 76.4 cm/sec E/E' med: 10.1 PA mean P.7 mmHg Lat Peak E' Albert: 7.2 cm/sec PA pr(Accel): 44.7 mmHg E/E' lat: 13.0 E/e' average: 11.6 MV dec time: 0.33 sec MVA(VTI): 1.7 cm2 MV V2 mean: 78.8 cm/sec SV(LVOT): 82.8 ml MV mean P.9 mmHg MV V2 VTI: 49.1 cm Reading Physician:05:23 PM
== END ==
PROVIDERS: Family Provider Student in an Organized Health Care Education/Training Program; PCP Student in an Organized Health Care Education/Training Program; Referring Provider Internal Medicine Cardiovascular Disease; Visit Provider Internal Medicine Cardiovascular Disease
DX: I08.1 Rheumatic disorders of both mitral and tricuspid valves (principal); R01.1 Cardiac murmur, unspecified
CPT/HCPCS: 93306

== ENCOUNTER → 2024-06-03 15:05 | Outpatient (CLI) | payer MEDICARE, SELFPAY ==
[2020-12-29 12:14] VITALS: BMI 26.3
--- NOTE | 2024-06-03 15:06 | DI.MG.S_ITS ---
BILATERAL DIGITAL SCREENING MAMMOGRAM 3D/2D WITH CAD: 06/03/2024 CLINICAL: Routine screening. Comparison is made to exams dated: 04/12/2023 mammogram, 01/06/2022 mammogram, and 12/24/2020 mammogram - [facility]. The breasts are heterogeneously dense, which may obscure small masses (category c / 51-75% glandular tissue). Current study was also evaluated with a Computer Aided Detection (CAD) system. There are benign calcifications in both breasts. No significant masses, calcifications, or other findings are seen in either breast. There has been no significant interval change. IMPRESSION: BENIGN There is no mammographic evidence of malignancy. A 1 year screening mammogram is recommended. Based on the Tyrer Cuzick model (a risk assessment model) the patient's lifetime risk is 4.4% and her 10 year risk is 0.0%. According to the ACR, ACS, and NCCN guidelines, an annual breast MRI exam along with mammogram is recommended if the patient's lifetime risk is 20% or greater. This exam was interpreted at Station ID: [id number]. NOTE: For mammograms, a report in lay terms will be sent to the patient. Approximately 15% of breast malignancies will not be visualized mammographically. In the management of a palpable breast mass, a negative mammogram must not discourage biopsy of a clinically suspicious lesion. Electronically Signed By: Tj patel/j luis:06/04/2024 07:40:30 letter sent: Normal Exam ACR BI-RADS Category 2: Benign
== END ==
PROVIDERS: Family Provider Student in an Organized Health Care Education/Training Program; PCP Student in an Organized Health Care Education/Training Program; Referring Provider Student in an Organized Health Care Education/Training Program; Visit Provider Student in an Organized Health Care Education/Training Program
DX: Z12.31 Encounter for screening mammogram for malignant neoplasm of breast (principal); R92.333 Mammographic heterogeneous density, bilateral breasts
CPT/HCPCS: 77063; 77067

== ENCOUNTER → 2024-06-12 13:34 | Outpatient (CLI) | payer MEDICARE, SELFPAY ==
[2020-12-29 12:14] VITALS: BMI 26.3
[2024-06-12 14:28] LABS: Add Manual Diff / Slide Review NO; Basophils Absolute Auto 0 /uL (0-100); Basophils Percent Auto 0.3 % (0-2); Eosinophils Absolute Auto 100 /uL (0-450); Eosinophils Percent Auto 2.1 % (2-4); Hematocrit 34.5 % (36-46); Lymphocytes Absolute Auto 3000 /uL (1100-4500); Lymphocytes Percent Auto 40.9 % (25-40); Mean Corpuscular HGB Conc 34.7 % (30-36); Mean Corpuscular Hemoglobin 31.3 PG (26-34); Mean Corpuscular Volume 90.2 fL (80-100); Monocytes Absolute Auto 700 /uL (0-900); Monocytes Percent Auto 9.2 % (3-14); Neutrophils Absolute Auto 3400 /uL (1500-7000); Neutrophils Percent Auto 47.5 % (50-75); Platelet Count 274 X10^3/uL (150-400); Red Blood Cell Count 3.82 X10^6/uL (4.0-5.2); Red Cell Distribution Width 13.1 % (11.6-14.8); White Blood Cell Count 7.2 X10^3/uL (4.5-11.0)
[2024-06-12 14:58] LABS: Alanine Aminotransferase 29 IU/L (<35); Albumin 4.7 g/dL (3.5-5.0); Albumin Globulin Ratio 1.6 (1.0-2.8); Alkaline Phosphatase 56 U/L (38-126); Aspartate Aminotransferase 34 IU/L (14-36); BUN Creatinine Ratio 16.4 (6-22); Bilirubin Total 0.4 mg/dL (0.2-1.3); Blood Urea Nitrogen 10 mg/dL (7-17); Calcium 9.4 mg/dL (8.4-10.2); Carbon Dioxide 24 mmol/L (22-32); Chloride 95 mmol/L (98-107); Estimated Glomerular Filt Rate > 60 mL/min (>60); Globulin 2.9 g/dL (1.7-4.1); Glucose 141 mg/dL (80-110); HEMOLYSIS < 15 (0-50); Potassium 3.9 mmol/L (3.4-5.1); Sodium 130 mmol/L (137-145); Total Protein 7.6 g/dL (6.3-8.2)
[2024-06-12 15:00] LABS: HEMOLYSIS < 15 (0-50); Iron 115 ug/dL (37-170)
[2024-06-12 15:11] LABS: Percent Iron Saturation 42 % (15-50); Total Iron Binding Capacity 277 ug/dL (265-497); Transferrin 257 mg/dL (206-381)
[2024-06-12 15:31] LABS: Ferritin 50 ng/mL (11-264)
== END ==
PROVIDERS: Family Provider Student in an Organized Health Care Education/Training Program; PCP Student in an Organized Health Care Education/Training Program; Referring Provider Student in an Organized Health Care Education/Training Program; Visit Provider Student in an Organized Health Care Education/Training Program
DX: D64.9 Anemia, unspecified (principal); R79.89 Other specified abnormal findings of blood chemistry
CPT/HCPCS: 36415; 80053; 82728; 83540; 83550; 85025

== ENCOUNTER → 2024-10-08 07:54 | Outpatient (CLI) | payer MEDICARE, SELFPAY ==
[2020-12-29 12:14] VITALS: BMI 26.3
[2024-10-08 09:56] LABS: Add Manual Diff / Slide Review NO; Basophils Absolute Auto 0 /uL (0-100); Basophils Percent Auto 0.6 % (0-2); Eosinophils Absolute Auto 200 /uL (0-450); Eosinophils Percent Auto 2.8 % (2-4); Hematocrit 35.3 % (36-46); Hemoglobin 12.2 g/dL (12.0-16.0); Lymphocytes Absolute Auto 2400 /uL (1100-4500); Mean Corpuscular HGB Conc 34.5 % (30-36); Mean Corpuscular Hemoglobin 31.7 PG (26-34); Mean Corpuscular Volume 91.9 fL (80-100); Monocytes Absolute Auto 800 /uL (0-900); Neutrophils Absolute Auto 2500 /uL (1500-7000); Neutrophils Percent Auto 42.6 % (50-75); Platelet Count 250 X10^3/uL (150-400); Red Blood Cell Count 3.84 X10^6/uL (4.0-5.2); Red Cell Distribution Width 12.8 % (11.6-14.8); White Blood Cell Count 5.8 X10^3/uL (4.5-11.0)
[2024-10-08 10:09] LABS: Alanine Aminotransferase 23 IU/L (<35); Albumin 4.5 g/dL (3.5-5.0); Albumin Globulin Ratio 1.7 (1.0-2.8); Alkaline Phosphatase 52 U/L (38-126); Aspartate Aminotransferase 29 IU/L (14-36); BUN Creatinine Ratio 18.8 (6-22); Bilirubin Total 0.6 mg/dL (0.2-1.3); Blood Urea Nitrogen 12 mg/dL (7-17); Calcium 9.6 mg/dL (8.4-10.2); Carbon Dioxide 26 mmol/L (22-32); Chloride 96 mmol/L (98-107); Estimated Glomerular Filt Rate > 60 mL/min (>60); Globulin 2.6 g/dL (1.7-4.1); Glucose 90 mg/dL (70-99); HEMOLYSIS < 15 (0-50); Potassium 4.7 mmol/L (3.4-5.1); Sodium 130 mmol/L (137-145); Total Protein 7.1 g/dL (6.3-8.2)
[2024-10-09 16:13] LABS: Free Kappa Lt Chains, Serum 20.6 mg/L (3.3-19.4); Free Lambda Lt Chains,Serum 9.6 mg/L (5.7-26.3)
== END ==
LOC: LAB 07:55
PROVIDERS: Family Provider Student in an Organized Health Care Education/Training Program; PCP Student in an Organized Health Care Education/Training Program; Referring Provider Student in an Organized Health Care Education/Training Program; Visit Provider Student in an Organized Health Care Education/Training Program
DX: C88.00 Waldenstrom macroglobulinemia not having achieved remission (principal)
CPT/HCPCS: 36415; 80053; 82784; 83883; 84155; 84165; 85025; 86334

== ENCOUNTER → 2024-10-28 15:57 | Outpatient (CLI) | payer MEDICARE, SELFPAY ==
[2024-10-28 09:23] VITALS: BMI 26.3
[2024-10-28 16:29] LABS: Appearance Urine UA SL CLOUDY; Bilirubin Urine UA NEGATIVE (NEGATIVE); Color Urine UA YELLOW; Glucose Urine UA NEGATIVE (Negative); Ketones Urine UA NEGATIVE (NEGATIVE); Leukocyte Esterase Urine UA 3+ (NEGATIVE); Nitrite Urine UA NEGATIVE (Negative); Occult Blood Urine UA TRACE-INTACT (Negative); Protein Urine UA TRACE (Negative); Specific Gravity Urine UA 1.010 (1.000-1.035); Urobilinogen Urine UA 0.2 E.U./dL (0.2)
[2024-10-28 16:35] LABS: pH Urine UA 6.0 (4.5-8.0)
== END ==
PROVIDERS: Family Provider Student in an Organized Health Care Education/Training Program; PCP Student in an Organized Health Care Education/Training Program; Referring Provider Student in an Organized Health Care Education/Training Program; Visit Provider Student in an Organized Health Care Education/Training Program
DX: R30.0 Dysuria (principal)
CPT/HCPCS: 81001; 87077; 87086; 87186

== ENCOUNTER → 2024-11-05 08:51 | Outpatient (CLI) | payer MEDICARE, SELFPAY ==
[2024-10-28 09:23] VITALS: BMI 26.3
[2024-11-05 09:51] LABS: Appearance Urine UA CLEAR; Bilirubin Urine UA NEGATIVE (NEGATIVE); Color Urine UA YELLOW; Glucose Urine UA NEGATIVE (Negative); Ketones Urine UA NEGATIVE (NEGATIVE); Leukocyte Esterase Urine UA 1+ (NEGATIVE); Nitrite Urine UA NEGATIVE (Negative); Occult Blood Urine UA NEGATIVE (Negative); Protein Urine UA NEGATIVE (Negative); Specific Gravity Urine UA 1.015 (1.000-1.035); Urobilinogen Urine UA 0.2 E.U./dL (0.2)
[2024-11-05 10:07] LABS: pH Urine UA 6.0 (4.5-8.0)
[2024-11-05 10:09] LABS: Culture Indicated Urine Specimen Cultured
== END ==
PROVIDERS: Family Provider Student in an Organized Health Care Education/Training Program; PCP Student in an Organized Health Care Education/Training Program; Referring Provider Student in an Organized Health Care Education/Training Program; Visit Provider Student in an Organized Health Care Education/Training Program
DX: R82.90 Unspecified abnormal findings in urine (principal)
CPT/HCPCS: 81001; 87086

== ENCOUNTER → 2025-03-19 07:26 | Outpatient (CLI) | payer MEDICARE, SELFPAY ==
[2024-10-28 09:23] VITALS: BMI 26.3
[2025-03-19 08:31] LABS: Hematocrit 33.1 % (36-46); Hemoglobin 11.7 g/dL (12.0-16.0); Mean Corpuscular HGB Conc 35.3 % (30-36); Mean Corpuscular Hemoglobin 31.5 PG (26-34); Mean Corpuscular Volume 89.4 fL (80-100); Platelet Count 219 X10^3/uL (150-400)
[2025-03-19 08:57] LABS: Blood Urea Nitrogen 10 mg/dL (7-17); Calcium 9.6 mg/dL (8.4-10.2); Carbon Dioxide 29 mmol/L (22-32); Chloride 99 mmol/L (98-107); Cholesterol 149 mg/dL (140-199); Estimated Glomerular Filt Rate > 60 mL/min (>60); Glucose 98 mg/dL (70-99); HDL Cholesterol 71 mg/dL (40-60); HEMOLYSIS < 15 (0-50); Potassium 3.7 mmol/L (3.4-5.1); Sodium 136 mmol/L (137-145); Triglycerides 51 mg/dL (35-150)
== END ==
PROVIDERS: Family Provider Student in an Organized Health Care Education/Training Program; PCP Student in an Organized Health Care Education/Training Program; Referring Provider Internal Medicine Cardiovascular Disease; Visit Provider Internal Medicine Cardiovascular Disease
DX: E78.5 Hyperlipidemia, unspecified (principal); I10 Essential (primary) hypertension
CPT/HCPCS: 36415; 80048; 80061; 85027